=== PATIENT | male | born 1975 | race Caucasian/White ===

== ENCOUNTER 2016-09-27 22:20 | Inpatient (IN) | payer BC, OTHER ==
--- NOTE | 2016-09-27 22:53 | ED ---
Headache HPI - General Chief Complaint: Headache Stated Complaint: Dx Viral Meningitis @ [facility] Time Seen by Provider: 09/27/16 22:32 Source: RN notes reviewed Mode of arrival: ambulatory Limitations: no limitations - History of Present Illness Initial Comments: Patient is a 41-year-old male presents to the emergency room for evaluation of a headache. Patient states he went to [facility] last night around 8 PM with an excruciating headache. Patient states they did a brain CT which was negative, influenza which was negative and a lumbar puncture and he was diagnosed with viral meningitis. Patient states he was sent home with pain medications. Patient states the pain got worse throughout the night last night so he went back to [facility] at 1:30 AM this morning. Patient states that they told them that they do not admit for viral meningitis and sent him home with stronger pain medications. Patient states he still having 10 out of 10 constant headache that would not subside with the medications that are prescribed to him. Patient states he was given Warren, naproxen, Reglan and Zofran. Patient states his last dose of his medications were around 7:30 PM. Patient does admit to sensitivity to light. Patient denies sensitivity to sound. Patient denies ear pain or ringing in the ears. Patient does state he is having neck pain at the base of his neck. Patient denies numbness or tingling in his extremities. Patient states he's been having a low-grade fever. Patient denies any other history of meningitis. - Related Data Home Medications Medication Instructions Recorded Confirmed Aspirin 81 mg PO DAILY 07/24/15 07/24/15 Fenofibrate [Tricor] 160 mg PO DAILY 07/24/15 07/30/15 Loratadine [Claritin] 10 mg PO DAILY 07/24/15 07/30/15 Montelukast Sodium [Singulair] 10 mg PO HS 07/24/15 07/30/15 Multivitamins, Thera [Theragran] 1 each PO DAILY@1200 07/24/15 07/24/15 Omeprazole 40 mg PO DAILY 07/24/15 07/30/15 Sertraline HCl [Zoloft] 50 mg PO HS 07/24/15 07/30/15 valACYclovir [Valtrex] 500 mg PO DAILY 07/24/15 07/30/15 Allergies Allergy/AdvReac Type Severity Reaction Status Date / Time No Known Allergies Allergy Verified 09/27/16 22:27 Review of Systems ROS Statement: Those systems with pertinent positive or pertinent negative responses have been documented in the HPI. ROS Other: All systems not noted in ROS Statement are negative. Past Medical History Past Medical History: Asthma, GERD/Reflux, Hyperlipidemia Additional Past Medical History / Comment(s): "after having stools will have some bleeding and stool discharge after wiping up to an 1 hr after having stools." Hx Herpes History of Any Multi-Drug Resistant Organisms: None Reported Past Surgical History: Orthopedic Surgery Additional Past Surgical History / Comment(s): rt ankle,EGD Past Anesthesia/Blood Transfusion Reactions: No Reported Reaction Past Psychological History: No Psychological Hx Reported Smoking Status: Current some day smoker Past Alcohol Use History: Occasional Additional Past Alcohol Use History / Comment(s): DRINKS ABOUT 14 DRINKS PER WEEK Past Drug Use History: None Reported - Past Family History Mother Family Medical History: Cancer Additional Family Medical History / Comment(s): colorectal ca Father Family Medical History: Cancer Additional Family Medical History / Comment(s): testicular ca General Exam - General Exam Comments Initial Comments: Laying in exam bed, no acute distress. Limitations: no limitations General appearance: alert, in no apparent distress Head exam: Present: atraumatic, normocephalic, normal inspection Eye exam: Present: normal appearance, PERRL, EOMI Pupils: Present: normal accommodation ENT exam: Present: normal exam, normal oropharynx, mucous membranes moist, TM's normal bilaterally, normal external ear exam Neck exam: Present: normal inspection, tenderness (base of skull/cervical spine) , full ROM Respiratory exam: Present: normal lung sounds bilaterally. Absent: respiratory distress Cardiovascular Exam: Present: regular rate, normal rhythm, normal heart sounds Extremities exam: Present: normal inspection Back exam: Present: normal inspection Neurological exam: Present: alert, oriented X3 Expanded Patient oriented to: Present: person, place, time Speech: Present: fluid speech Cranial nerves: EOM's Intact: Normal, Facial Sensation: Normal Sensory exam: Upper Extremity Light Touch: Normal, Lower Extremity Light Touch: Normal Motor strength exam: RUE: 5, LUE: 5, RLE: 5, LLE: 5 Eye Response: (4) open spontaneously Motor Response: (6) obeys commands Verbal Response: (5) oriented Psychiatric exam: Present: normal affect, normal mood Skin exam: Present: warm, dry, intact, normal color. Absent: rash Course Vital Signs 09/27/16 22:25 Temperature 98.5 F Pulse Rate 61 Respiratory 20 Rate Blood Pressure 139/85 O2 Sat by Pulse 100 Oximetry Medical Decision Making - Medical Decision Making Patient is a 41-year-old male presents to the emergency room for evaluation of intractable headache after being diagnosed with viral meningitis. Patient's test results sent from [facility]. Cerebral spinal fluid: Clear, colorless, RBC 14, WBC 63, Protein 94, Glucose 58. Patient states he is feeling much more comfortable after medications given. Case discussed Dr. Castro. Dr. Castro discussed case with Dr. Schaffer who agreed to admit patient for pain control for viral meningitis. - Lab Data Result diagrams: 09/27/16 23:35 09/27/16 23:35 Lab Results 09/27/16 09/27/16 Range/Units 23:35 23:35 WBC 6.6 (3.8-10.6) k/uL RBC 3.96 L (4.30-5.90) m/uL Hgb 12.5 L (13.0-17.5) gm/dL Hct 37.4 L (39.0-53.0) % MCV 94.4 (80.0-100.0) fL MCH 31.6 (25.0-35.0) pg MCHC 33.5 (31.0-37.0) g/dL RDW 13.4 (11.5-15.5) % Plt Count 199 (150-450) k/uL Neutrophils % 78 % Lymphocytes % 13 % Monocytes % 7 % Eosinophils % 0 % Basophils % 0 % Neutrophils # 5.1 (1.3-7.7) k/uL Lymphocytes # 0.8 L (1.0-4.8) k/uL Monocytes # 0.4 (0-1.0) k/uL Eosinophils # 0.0 (0-0.7) k/uL Basophils # 0.0 (0-0.2) k/uL Sodium 142 (137-145) mmol/L Potassium 4.2 (3.5-5.1) mmol/L Chloride 103 (98-107) mmol/L Carbon Dioxide 27 (22-30) mmol/L Anion Gap 12 mmol/L BUN 12 (9-20) mg/dL Creatinine 0.90 (0.66-1.25) mg/dL Est GFR (MDRD) Af Amer >60 (>60 ml/min/1.73 sqM) Est GFR (MDRD) Non-Af >60 (>60 ml/min/1.73 sqM) Glucose 110 H (74-99) mg/dL Calcium 9.4 (8.4-10.2) mg/dL Total Bilirubin 0.7 (0.2-1.3) mg/dL AST 29 (17-59) U/L ALT 56 (21-72) U/L Alkaline Phosphatase 38 (38-126) U/L Total Protein 6.8 (6.3-8.2) g/dL Albumin 4.3 (3.5-5.0) g/dL Disposition Clinical Impression: Viral meningitis, Intractable headache Disposition: ADMITTED IP TO THIS [facility] Condition: Stable Decision Date: 09/28/16
[2016-09-27] MEDS ORDERED: SODIUM CHLORIDE 0.9% 1,000 ML IV ONE (22:56)
[2016-09-27] MEDS ORDERED: KETOROLAC 30 MG/ML 1 ML VIAL IVP STA (22:57)
[2016-09-27] MEDS ORDERED: diphenhydrAMINE 50 MG/ML 1 ML VIAL IVP STA (22:57)
[2016-09-27] MEDS ORDERED: METOCLOPRAMIDE 5 MG/ML 2 ML VIAL IVP STA (22:57)
[2016-09-27] MEDS ORDERED: HYDROmorphone 1 MG/ML 1 ML SYRINGE IVP STA (23:00)
[2016-09-27 23:48] LABS: Basophils % (A) 0 %; CH 31.8; CHCM 33.9; Eosinophils % (A) 0 %; HCT 37.4 % (39.0-53.0); HDW 2.66; HGB 12.5 gm/dL (13.0-17.5); Luc % (Auto) 3; Lymphocytes # (A) 0.8 k/uL (1.0-4.8); Lymphocytes % (A) 13 %; MCH 31.6 pg (25.0-35.0); MCHC 33.5 g/dL (31.0-37.0); MCV 94.4 fL (80.0-100.0); Mean Platelet Volume 6.7; Monocytes # (A) 0.4 k/uL (0-1.0); Monocytes % (A) 7 %; Neutrophils # (A) 5.1 k/uL (1.3-7.7); Neutrophils % (A) 78 %; RBC 3.96 m/uL (4.30-5.90); RDW 13.4 % (11.5-15.5); WBC 6.6 k/uL (3.8-10.6)
[2016-09-27 23:58] LABS: ALT 56 U/L (21-72); AST 29 U/L (17-59); Alkaline Phosphatase 38 U/L (38-126); Anion Gap 12 mmol/L; Blood Urea Nitrogen 12 mg/dL (9-20); Calcium 9.4 mg/dL (8.4-10.2); Carbon Dioxide 27 mmol/L (22-30); Chloride 103 mmol/L (98-107); Glucose 110 mg/dL (74-99); Non-African American GFR(MDRD) >60 (>60 ml/min/1.73 sqM); Potassium 4.2 mmol/L (3.5-5.1); Sodium 142 mmol/L (137-145); Total Bilirubin 0.7 mg/dL (0.2-1.3); Total Protein 6.8 g/dL (6.3-8.2)
[2016-09-28] MEDS ORDERED: ONDANSETRON 4 MG/2 ML VIAL IVP PRN (00:21)
[2016-09-28] MEDS ORDERED: NALOXONE 0.4 MG/ML 1 ML VIAL IV PRN (00:21)
[2016-09-28] MEDS ORDERED: ACETAMINOPHEN TAB 325 MG TAB PO PRN (00:21)
[2016-09-28 01:28] VITALS: BMI 32.1
[2016-09-28] MEDS: HYDROmorphone 1 MG/ML 1 ML SYRINGE IV PRN ×2 (02:54→07:48)
[2016-09-28] MEDS: SODIUM CHLORIDE 0.9% 1,000 ML IV SCH ×2 (03:02→12:36)
[2016-09-28] MEDS: KETOROLAC 30 MG/ML 1 ML VIAL IVP PRN ×3 (06:17→20:04)
--- NOTE | 2016-09-28 11:13 | HP ---
HISTORY AND PHYSICAL/DISCHARGE SUMMARY: DATE OF ADMISSION: This dictation is both H&P and discharge summary. Patient is a 41-year-old gentleman who came in, is admitted for severe headache and patient was recently diagnosed with viral meningitis at the [facility]. Patient presented to [facility] on Wednesday with headache, influenza testing was negative and patient had a CT of brain that as negative and patient underwent CSF analysis which is consistent with vital meningitis. Patient was discharged on naproxen. Patient is already on valacyclovir and patient was given Reglan. Patient's symptoms did get worse and uncontrollable headache, because of which patient came to the hospital and patient's pain he says is controlled with Toradol as well as Dilaudid he is taking. My plan is to switch him to oral medications and if he is doing okay clinically, patient will be discharged today. Patient at this time does not have any fevers and denied any body aches at this point of time. REVIEW OF SYSTEMS: CONSTITUTIONAL: No fever, no malaise, no fatigue. HEENT: No recent visual problems or hearing problems. Denied any sore throat. CARDIOVASCULAR: No chest pain, orthopnea, PND, no palpitations, no syncope. PULMONARY: No shortness of breath, no cough, no hemoptysis. GASTROINTESTINAL: No diarrhea, no nausea, no vomiting, no abdominal pain. Normoactive bowel sounds. NEUROLOGICAL: As described in HPI. HEMATOLOGICAL: Denies any bleeding or petechiae. GENITOURINARY: Denies any burning micturition, frequency, or urgency. MUSCULOSKELETAL/RHEUMATOLOGICAL: Denies any joint pain, swelling, or any muscle pain. ENDOCRINE: Denies any polyuria or polydipsia. The rest of the 14 point review of systems is negative. Patient does not have any weakness, seizure-like activity. Denied any seizure-like activity. Patient denied any history of migraine. Home medications include: 1. Fenofibrate. 2. Loratadine. 3. Montelukast. 4. Multivitamin. 5. Omeprazole. 6. Sertraline. 7. Valacyclovir. ALLERGIES: No known drug allergies. Past medical history significant for asthma, gastroesophageal reflux disease, hyperlipidemia. PAST SURGICAL HISTORY: Orthopedic surgery, right ankle surgery in the past. Patient does smoke a pack per day, drinks about 14 beers for a week. Denied any drug abuse. FAMILY HISTORY: Mother had colorectal cancer. Father had testicular cancer. PHYSICAL EXAMINATION: Temperature 98.1, pulse of 60, respiratory rate of 16, blood pressure is 141/87, saturating at 97% on room air. GENERAL: Patient is in a bit of distress and appears to have a little bit of continued photophobia. Because of which patient has cloth over his eyes. Alert and oriented x3. HEENT: Pupils are round and equally reacting to light. EOMI. No scleral icterus. No conjunctival pallor. Normocephalic, atraumatic. No pharyngeal erythema. No thyromegaly. CARDIOVASCULAR: S1 and S2 present. No murmurs, rubs, or gallops. PULMONARY: Chest is clear to auscultation, no wheezing or crackles. ABDOMEN: Soft, nontender, nondistended, normoactive bowel sounds. No palpable organomegaly. MUSCULOSKELETAL: No joint swelling or deformity. EXTREMITIES: No cyanosis, clubbing, or pedal edema. NEUROLOGICAL: Gross neurological examination did not reveal any focal deficits. SKIN: No rashes. LABORATORY DATA: CBC, CMP, essentially within normal limits. ASSESSMENT AND PLAN: 1. Uncontrolled severe headache, management as mentioned in the interval history. Secondary to viral meningitis. Expected to improve in the next couple of days. Patient probably should stay home for the next 4 days. 2. Asthma without any acute exacerbation. 3. Nicotine abuse history, counseling was provided. 4. Gastroesophageal reflux disease. 5. Hyperlipidemia. For above-mentioned chronic medical problems, will continue his home medications. Patient will be started on Fioricet, continue Ketoralac, discontinue Dilaudid. If patient is clinically doing well, patient will be discharged on Fioricet and Ketorolac and discontinue naproxen as well as Zofran. Patient will follow with his primary care physician. DISCHARGE DIET: Regular. Nicotine cessation counseling was provided.
[2016-09-28] MEDS: BUTA/APAP/CAF/COD 50-325-40-30 CAP PO PRN ×2 (11:26→17:12)
[2016-09-28] MEDS: HYDROcodone/APAP 7.5-325MG 1 EACH TAB PO PRN (14:57)
[2016-09-28] MEDS ORDERED: MONTELUKAST 10 MG TAB PO SCH (21:00)
[2016-09-28] MEDS ORDERED: SERTRALINE 50 MG TAB PO SCH (21:00)
[2016-09-29] MEDS: BUTA/APAP/CAF/COD 50-325-40-30 CAP PO PRN
[2016-09-29] MEDS: HYDROcodone/APAP 7.5-325MG 1 EACH TAB PO PRN ×2 (00:02→07:59)
[2016-09-29] MEDS: SODIUM CHLORIDE 0.9% 1,000 ML IV SCH ×2 (01:15→08:25)
[2016-09-29] MEDS ORDERED: PANTOPRAZOLE 40 MG TABLET PO SCH (07:30)
[2016-09-29 08:16] VITALS: BP 155/89; PULSE 52; RESP 18; TEMP 98
[2016-09-29] MEDS ORDERED: valACYclovir 500 MG TAB PO SCH (09:00)
[2016-09-29] MEDS ORDERED: ASPIRIN 81 MG CHEW PO SCH (09:00)
[2016-09-29] MEDS ORDERED: FENOFIBRATE 160 MG TAB PO SCH (09:00)
--- NOTE | 2016-09-29 10:35 | DS ---
DATE OF ADMISSION: 09/28/2016 DATE OF DISCHARGE: Patient is a 41-year-old admitted with severe headache secondary to viral meningitis and patient's headache did improve. Patient will be discharged today on oral medications. Will try and see if Pain Management can see the patient. If not, patient will be discharged later on etodolac and Fioricet. Patient was seen and examined on the day of discharge. Vitals are stable. PHYSICAL EXAMINATION: GENERAL: The patient is alert and oriented x3, not in any acute distress. Well developed, well nourished. HEENT: Pupils are round and equally reacting to light. EOMI. No scleral icterus. No conjunctival pallor. Normocephalic, atraumatic. No pharyngeal erythema. No thyromegaly. CARDIOVASCULAR: S1 and S2 present. No murmurs, rubs, or gallops. PULMONARY: Chest is clear to auscultation, no wheezing or crackles. ABDOMEN: Soft, nontender, nondistended, normoactive bowel sounds. No palpable organomegaly. MUSCULOSKELETAL: No joint swelling or deformity. EXTREMITIES: No cyanosis, clubbing, or pedal edema. NEUROLOGICAL: Gross neurological examination did not reveal any focal deficits. SKIN: No rashes. FINAL DIAGNOSES: 1. Uncontrolled severe headache secondary to viral meningitis. Patient had herpes simplex years ago. Since then, patient is on Valtrex. Patient's viral meningitis is not related to herpes simplex. 2. Asthma without any acute exacerbation. 3. Nicotine abuse. 4. Gastroesophageal reflux disease. 5. Hyperlipidemia. DISCHARGE DIET: Cardiac. Activity as tolerated. Follow up with Dr. Gordon Interiano in about 3 to 7 days.
[2016-09-29] MEDS: KETOROLAC 30 MG/ML 1 ML VIAL IVP PRN (10:37)
[2016-09-29] MEDS ORDERED: oxyCODONE-APAP 7.5-325MG 1 EACH TAB PO STA (11:47)
[2016-09-29] MEDS ORDERED: oxyCODONE-APAP 7.5-325MG 1 EACH TAB PO PRN (11:48)
--- NOTE | 2016-09-29 11:48 | P.CON ---
Consult Note - . Consult date: 09/29/16 Assessment/Plan:: Patient seen and examined, past medical/surgical/social/family histories and allergies reviewed. Mr. Scruggs is a 41-year-old male who presented to [facility] with headaches and a previous diagnosis of viral meningitis that he got at [facility]; patient notes that they do not treat viral meningitis at that facility and discharged him with pain medications for his headaches after two visits to the ER. Patient complains of splitting headaches that are frontal and retro-orbital. He has had occasional migraines before but nothing this bad. Patient had CT scans, lumbar punctures, and blood work done at other facility demonstrating viral meningitis per chart. Patient has been taking Valtrex chronically for HSV but it is not believed that his meningitis is due to HSV. At this point, I do not see any indications for injections given that his pain does not follow distribution of any peripheral nerves, whether occipital, supraorbital, or auriculotemporal. Regardless, it would be unwise to perform any injections for the patient's headaches at this time due to his presumed meningitis, as any and all procedures would involve giving him steroids that might worsen it. I recommend that the patient be discharged with Percocet 7.5/ 325 q8h with a total of #45 pills for 15 days' supply, anticipating that his headaches should improve along with the meningitis. I informed the patient that , if his headaches do not improve and he needs further management, he should follow up with a neurologist for further evaluation. Follow-up in our interventional pain clinic is unlikely to give him any further benefit. He verbalized understanding. Please call back with any further questions.
== END 2016-09-29 13:10 | disposition home or self-care (01) | DRG 76 ==
LOC: EC 22:20 → 5MS5E 09-28 00:23
PROVIDERS: ADMIT Internal Medicine; ATTEND Internal Medicine
DX: A87.9 Viral meningitis, unspecified (principal); E78.5 Hyperlipidemia, unspecified; F17.200 Nicotine dependence, unspecified, uncomplicated; J45.909 Unspecified asthma, uncomplicated; K21.9 Gastro-esophageal reflux disease without esophagitis; R51 Headache; Z79.82 Long term (current) use of aspirin; Z79.899 Other long term (current) drug therapy
CPT/HCPCS: 36415; 80053; 85025; 96361; 96374; 96375; 99285

== ENCOUNTER 2018-10-30 17:41 | Inpatient (IN) | payer BC ==
--- NOTE | 2018-10-30 17:56 | ED ---
General Adult HPI - General Chief complaint: Fever Stated complaint: Fever, infection Time Seen by Provider: 10/30/18 17:48 Source: patient Mode of arrival: wheelchair Limitations: no limitations - History of Present Illness Initial comments: Dictation was produced using [employer] dictation software. please excuse any grammatical, word or spelling errors. Chief Complaint: 43-year-old male presents with left knee pain and fever. History of Present Illness: 43-year-old maleappearing comorbidities presents with left knee pain and fever. Patient reports that she today he noted that there was significant pain to his left anterior knee. Patient states he's been okay over the last couple days however he noted swelling and redness around his knee today. Patient states his having pain and throbbing sensation to his left anterior knee. Patient still able to bend and extend his knee. Denies any swelling to the sides just swelling to the anterior portion. Patient recently had a vasectomy. He states he was put on antibiotics as a precautionary measure. He does report some pain to his testicular area. The ROS documented in this emergency department record has been reviewed and confirmed by me. Those systems with pertinent positive or negative responses have been documented in the HPI. All other systems are other negative and/or noncontributory. PHYSICAL EXAM: General Impression: Alert and oriented x3, not in acute distress HEENT: Normocephalic atraumatic, extra-ocular movements intact, pupils equal and reactive to light bilaterally, mucous membranes moist. Cardiovascular: Heart regular rate and rhythm, S1&S2 audible, no murmurs, rubs or gallops Chest: Lungs clear to auscultation bilaterally, no rhonchi, no wheeze, no rales Abdomen: Bowel sounds present, abdomen soft, non-tender, non-distended, no organomegaly Musculoskeletal: Pulses present and equal in all extremities, no peripheral edema Motor: no focal deficits noted Neurological: CN II-XII grossly intact, no focal motor or sensory deficits noted Skin: Fluctuant area to the left anterior prepatellar bursa, warm to the touch Psych: Normal affect and mood ED course: 43-year-old male presents with knee pain and constitutional symptoms. Vital signs upon arrival shows temperature 101.1, rest of vital signs within acceptable limits. Prepatellar bursa was drained using a needle aspiration technique. There was purulent fluid that was draining from the inflamed bursa.Laboratory evaluation obtained. Leukocytosis 13.9. Rest of CBC is grossly unremarkable. Metabolic panel is negative. Urinalysis is negative. Bursal fluid were sent for laboratory evaluation. There is 204,000 no nucleated cells. This is consistent with septic bursitis. Influenza test is negative. Patient given vancomycin. Patient still nauseated. Patient clinical presentation consistent with septic bursitis. Patient does have constitutional symptoms. Blood culture sent. Given patient's degree of symptoms we will plan at patient admitted to medical surgical floor. Hospitalist requests infection disease consultation. - Related Data Home Medications Medication Instructions Recorded Confirmed Aspirin 81 mg PO DAILY 07/24/15 10/30/18 Fenofibrate [Tricor] 160 mg PO DAILY 07/24/15 10/30/18 Montelukast Sodium [Singulair] 10 mg PO HS 07/24/15 10/30/18 Multivitamins, Thera [Theragran] 1 tab PO DAILY 07/24/15 10/30/18 Omeprazole 40 mg PO DAILY 07/24/15 10/30/18 Sertraline HCl [Zoloft] 50 mg PO HS 07/24/15 10/30/18 valACYclovir [Valtrex] 500 mg PO DAILY 07/24/15 10/30/18 Allergies Allergy/AdvReac Type Severity Reaction Status Date / Time No Known Allergies Allergy Verified 10/30/18 18:26 Review of Systems ROS Statement: Those systems with pertinent positive or pertinent negative responses have been documented in the HPI. ROS Other: All systems not noted in ROS Statement are negative. Past Medical History Past Medical History: Asthma, GERD/Reflux, Hyperlipidemia Additional Past Medical History / Comment(s): "after having stools will have some bleeding and stool discharge after wiping up to an 1 hr after having stools." Hx Herpes History of Any Multi-Drug Resistant Organisms: None Reported Past Surgical History: Orthopedic Surgery Additional Past Surgical History / Comment(s): rt ankle,EGD, L eye surgery, vasectomy Past Anesthesia/Blood Transfusion Reactions: No Reported Reaction Past Psychological History: No Psychological Hx Reported Smoking Status: Light tobacco smoker Past Alcohol Use History: Occasional Past Drug Use History: None Reported - Past Family History Mother Family Medical History: Cancer Additional Family Medical History / Comment(s): colorectal ca Father Family Medical History: Cancer Additional Family Medical History / Comment(s): testicular ca General Exam Limitations: no limitations Course Vital Signs 10/30/18 10/30/18 10/30/18 17:44 17:51 19:00 Temperature 100.5 F H 101.1 F H Pulse Rate 100 Respiratory 18 18 Rate Blood Pressure 137/82 125/72 O2 Sat by Pulse 97 98 Oximetry Medical Decision Making - Lab Data Result diagrams: 10/30/18 18:25 10/30/18 18:25 Lab Results 10/30/18 10/30/18 10/30/18 Range/Units 18:25 18:25 18:39 WBC 13.9 H (3.8-10.6) k/uL RBC 4.42 (4.30-5.90) m/uL Hgb 13.6 (13.0-17.5) gm/dL Hct 39.8 (39.0-53.0) % MCV 90.1 (80.0-100.0) fL MCH 30.8 (25.0-35.0) pg MCHC 34.2 (31.0-37.0) g/dL RDW 16.0 H (11.5-15.5) % Plt Count 202 (150-450) k/uL Neutrophils % 84 % Lymphocytes % 8 % Monocytes % 6 % Eosinophils % 1 % Basophils % 0 % Neutrophils # 11.6 H (1.3-7.7) k/uL Lymphocytes # 1.2 (1.0-4.8) k/uL Monocytes # 0.8 (0-1.0) k/uL Eosinophils # 0.2 (0-0.7) k/uL Basophils # 0.0 (0-0.2) k/uL Sodium 141 (137-145) mmol/L Potassium 4.3 (3.5-5.1) mmol/L Chloride 108 H (98-107) mmol/L Carbon Dioxide 23 (22-30) mmol/L Anion Gap 10 mmol/L BUN 19 (9-20) mg/dL Creatinine 1.14 (0.66-1.25) mg/dL Est GFR (CKD-EPI)AfAm 90 (>60 ml/min/1.73 sqM) Est GFR (CKD-EPI)NonAf 78 (>60 ml/min/1.73 sqM) Glucose 91 (74-99) mg/dL Calcium 10.1 (8.4-10.2) mg/dL Urine Color Yellow Urine Appearance Cloudy (Clear) Urine pH 7.5 (5.0-8.0) Ur Specific [place] 1.020 (1.001-1.035) Urine Protein Negative (Negative) Urine Glucose (UA) Negative (Negative) Urine Ketones Negative (Negative) Urine Blood Negative (Negative) Urine Nitrite Negative (Negative) Urine Bilirubin Negative (Negative) Urine Urobilinogen <2.0 (<2.0) mg/dL Ur Leukocyte Esterase Negative (Negative) Urine WBC 1 (0-5) /hpf Amorphous Sediment Rare H (None) /hpf Fluid Source Fluid Color Fluid Appearance Fluid RBC /uL Fluid Nucleated Cells /uL Fluid Polynuclear WBCs % Influenza Type A RNA (Not Detectd) Influenza Type B (PCR) (Not Detectd) 10/30/18 10/30/18 Range/Units 18:39 18:42 WBC (3.8-10.6) k/uL RBC (4.30-5.90) m/uL Hgb (13.0-17.5) gm/dL Hct (39.0-53.0) % MCV (80.0-100.0) fL MCH (25.0-35.0) pg MCHC (31.0-37.0) g/dL RDW (11.5-15.5) % Plt Count (150-450) k/uL Neutrophils % % Lymphocytes % % Monocytes % % Eosinophils % % Basophils % % Neutrophils # (1.3-7.7) k/uL Lymphocytes # (1.0-4.8) k/uL Monocytes # (0-1.0) k/uL Eosinophils # (0-0.7) k/uL Basophils # (0-0.2) k/uL Sodium (137-145) mmol/L Potassium (3.5-5.1) mmol/L Chloride (98-107) mmol/L Carbon Dioxide (22-30) mmol/L Anion Gap mmol/L BUN (9-20) mg/dL Creatinine (0.66-1.25) mg/dL Est GFR (CKD-EPI)AfAm (>60 ml/min/1.73 sqM) Est GFR (CKD-EPI)NonAf (>60 ml/min/1.73 sqM) Glucose (74-99) mg/dL Calcium (8.4-10.2) mg/dL Urine Color Urine Appearance (Clear) Urine pH (5.0-8.0) Ur Specific [place] (1.001-1.035) Urine Protein (Negative) Urine Glucose (UA) (Negative) Urine Ketones (Negative) Urine Blood (Negative) Urine Nitrite (Negative) Urine Bilirubin (Negative) Urine Urobilinogen (<2.0) mg/dL Ur Leukocyte Esterase (Negative) Urine WBC (0-5) /hpf Amorphous Sediment (None) /hpf Fluid Source Synovial Fluid Color [place] Fluid Appearance Cloudy Fluid RBC 9000 /uL Fluid Nucleated Cells 888153 /uL Fluid Polynuclear WBCs 100 % Influenza Type A RNA Not Detected (Not Detectd) Influenza Type B (PCR) Not Detected (Not Detectd) Disposition Clinical Impression: Septic bursitis Disposition: ADMITTED IP TO THIS [facility] Condition: Fair Referrals: Colten Romero MD [Primary Care Provider] - 1-2 days Decision Time: 20:26
[2018-10-30] MEDS ORDERED: VANCOMYCIN 2,000 MG in SODIUM CHLORIDE 0.9% 500 ML 500 ML IVPB STA (18:20)
[2018-10-30 18:37] LABS: Basophils % (A) 0 %; Eosinophils # (A) 0.2 k/uL (0-0.7); Eosinophils % (A) 1 %; HCT 39.8 % (39.0-53.0); HGB 13.6 gm/dL (13.0-17.5); Lymphocytes # (A) 1.2 k/uL (1.0-4.8); Lymphocytes % (A) 8 %; MCH 30.8 pg (25.0-35.0); MCHC 34.2 g/dL (31.0-37.0); MCV 90.1 fL (80.0-100.0); Mean Platelet Volume 9.3; Monocytes # (A) 0.8 k/uL (0-1.0); Monocytes % (A) 6 %; Neutrophils # (A) 11.6 k/uL (1.3-7.7); Neutrophils % (A) 84 %; Platelet Count 202 k/uL (150-450); RBC 4.42 m/uL (4.30-5.90); WBC 13.9 k/uL (3.8-10.6)
[2018-10-30 18:54] LABS: Calcium 10.1 mg/dL (8.4-10.2); Potassium 4.3 mmol/L (3.5-5.1)
[2018-10-30 19:18] LABS: Amorphous Sediment,Urine Rare /hpf; Appearance,Urine Cloudy (Clear); Bilirubin,Urine Negative (Negative); Blood,Urine Negative (Negative); Color,Urine Yellow; Glucose,Urine (UA) Negative (Negative); Ketones,Urine Negative (Negative); Leukocyte Esterase,Urine Negative (Negative); Nitrite,Urine Negative (Negative); PH, Urine 7.5 (5.0-8.0); Protein,Urine Negative (Negative); Urobilinogen,Urine <2.0 mg/dL (<2.0)
[2018-10-30 19:28] LABS: Appearance,BF Cloudy; Color,BF Orange; RBC, Body Fluid 9000 /uL
[2018-10-30 19:29] LABS: Nucleated Cells, Body Fluid 204000 /uL; Polynuclear WBC,Body Fluid 100 %; Total Cells Counted,Body Fluid 100
[2018-10-30] MEDS ORDERED: NALOXONE 0.4 MG/ML 1 ML VIAL IV PRN (20:22)
[2018-10-30] MEDS ORDERED: MORPHINE SULFATE 4 MG/ML SYRINGE IV PRN (20:22)
[2018-10-30] MEDS ORDERED: ONDANSETRON 4 MG/2 ML VIAL IVP PRN (20:22)
[2018-10-30] MEDS ORDERED: SODIUM CHLORIDE 0.9% 1,000 ML IV SCH (20:30)
[2018-10-30] MEDS: ACETAMINOPHEN TAB 325 MG TAB PO PRN (20:53)
[2018-10-30] MEDS ORDERED: IBUPROFEN 400 MG TAB PO PRN (22:53)
[2018-10-30] MEDS ORDERED: LORazepam 2 MG/ML INJ IV PRN ×3 (22:54)
[2018-10-30] MEDS: MONTELUKAST 10 MG TAB PO SCH (23:24)
[2018-10-30] MEDS: FAMOTIDINE 20 MG TAB PO SCH (23:24)
[2018-10-30] MEDS: SERTRALINE 50 MG TAB PO SCH (23:24)
[2018-10-31 06:32] LABS: Glucose,Whole Blood 114 mg/dL (75-99)
[2018-10-31] MEDS: ASPIRIN 81 MG PO SCH (09:05)
[2018-10-31] MEDS: ACETAMINOPHEN TAB 325 MG TAB PO PRN ×2 (09:06→16:27)
[2018-10-31] MEDS: THIAMINE 100 MG TAB PO SCH ×2 (09:06→16:28)
[2018-10-31] MEDS: MULTIVITAMINS, THERA 1 EACH TAB PO SCH (09:06)
[2018-10-31] MEDS: FENOFIBRATE 160 MG TAB PO SCH (09:06)
[2018-10-31] MEDS: FAMOTIDINE 20 MG TAB PO SCH ×2 (09:06→21:01)
[2018-10-31] MEDS: valACYclovir 500 MG TAB PO SCH (09:08)
[2018-10-31] MEDS ORDERED: VANCOMYCIN IV PER PHARMACY 1 EACH MISC MISCELLANE PRN (11:05)
[2018-10-31] MEDS ORDERED: HYDROcodone/APAP 5-325MG 1 EACH TAB PO PRN (11:05)
[2018-10-31] MEDS ORDERED: HYDROmorphone 0.5 MG/0.5 ML SYRINGE IVP PRN (11:10)
[2018-10-31] MEDS ORDERED: TEMAZEPAM 15 MG CAP PO PRN (11:27)
[2018-10-31] MEDS ORDERED: ALPRAZolam 0.25 MG TAB PO PRN (11:27)
[2018-10-31] MEDS: VANCOMYCIN 1,750 MG in SODIUM CHLORIDE 0.9% 500 ML 500 ML IVPB SCH ×2 (12:17→21:01)
[2018-10-31] MEDS: SODIUM CHLORIDE 0.9% 1,000 ML IV SCH (12:18)
[2018-10-31 12:40] LABS: Uric Acid 5.5 mg/dL (3.5-8.5)
[2018-10-31] MEDS: KETOROLAC 30 MG/ML 1 ML VIAL IVP SCH ×2 (16:55→23:50)
--- NOTE | 2018-10-31 17:22 | P.CNOR ---
History of Present Illness - [facility] Consult date: 10/31/18 History of present illness: This patient is a 43 year old male with a past medical history of dyslipidemia who presented to the [facility] ED yesterday afternoon for evaluation of his left knee. The patient states he began to notice pain in the left knee yesterday morning. He then began to notice swelling and erythema of the anterior left knee later on in the day. The patient states he began to lose his appetite, felt nauseated, and very warm around dinner time, patient lost his appetite to eat dinner. Patient presented to the ED last night for evaluation and treatment. Patient was febrile on arrival, temperature was 101 degrees. CBC revealed WBC of 13.1. Aspiration was performed of the prepatellar bursa and fluid analysis revealed 204,000 nucleated cells, 100 polynuclear WBCs, culture is pending. The patient is receiving Vancomycin for antibiotics. Patient was admitted to internal medicine with consults placed to infectious disease and orthopedics. At the time of my exam, the patient states his pain in the left knee is contr olled. He states he only experiences pain when the anterior left knee is palpated, or when he is ambulating. The patient states he overall feels better than he did yesterday when he presented to the ED; he is no longer experiencing nausea or additional constitutional symptoms. Patient notes a recent history of a vasectomy, when he states he experienced a mild post-operative infection in this area, and he was given two prescriptions for post-operative antibiotics, he is unsure which antibiotic. Patient states he is no longer experiencing issues from this episode. He has since followed up with his doctor, who is located in [place], per patient. He denies history of septic arthritis or bursitis. Patient denies injury to this knee. Patient denies pain in additional areas of the body. Past Medical History Past Medical History: Asthma, GERD/Reflux, Hyperlipidemia Additional Past Medical History / Comment(s): Hx Herpes History of Any Multi-Drug Resistant Organisms: None Reported Past Surgical History: Orthopedic Surgery Additional Past Surgical History / Comment(s): rt ankle,EGD, L eye surgery, vasectomy Past Anesthesia/Blood Transfusion Reactions: No Reported Reaction Past Psychological History: No Psychological Hx Reported Smoking Status: Never smoker Past Alcohol Use History: Occasional Additional Past Alcohol Use History / Comment(s): 5 beers/ night. Has an occasional cigar Past Drug Use History: None Reported - Past Family History Mother Family Medical History: Cancer Additional Family Medical History / Comment(s): colorectal ca Father Family Medical History: Cancer Additional Family Medical History / Comment(s): testicular ca Medications and Allergies Home Medications Medication Instructions Recorded Confirmed Type Aspirin 81 mg PO DAILY 07/24/15 10/30/18 History Fenofibrate [Tricor] 160 mg PO DAILY 07/24/15 10/30/18 History Montelukast Sodium [Singulair] 10 mg PO HS 07/24/15 10/30/18 History Multivitamins, Thera [Theragran] 1 tab PO DAILY 07/24/15 10/30/18 History Omeprazole 40 mg PO DAILY 07/24/15 10/30/18 History Sertraline HCl [Zoloft] 50 mg PO HS 07/24/15 10/30/18 History valACYclovir [Valtrex] 500 mg PO DAILY 07/24/15 10/30/18 History Allergies Allergy/AdvReac Type Severity Reaction Status Date / Time No Known Allergies Allergy Verified 10/30/18 18:26 Physical Examination On examination, the patient is sitting in bed in no apparent distress. The patient is alert and orientated x3. He appears comfortable. On inspection of the left knee, there is swelling and erythema to the anterior knee. There are no open wounds or lacerations. The anterior knee is diffusely tender to palpation, this area is also warm. No tenderness on palpation of the patellar or quadriceps tendon, no tenderness of the popliteal fossa. There is mild pain with PROM of the knee. The left lower extremity is warm and well perfused with brisk capillary refill of the toes. No pain with PROM of the left ankle or hip. Left calf is soft and nontender. Vital signs stable. Results Pre-patellar bursa aspiration: 204,000 nucleated cells. 100 polynuclear WBCs. Cultures pending. WBC 13.1, CRP 142. ESR 8. - Labs Labs: Abnormal Lab Results - Last 24 Hours (Table) 10/30/18 10/30/18 10/30/18 Range/Units 18:25 18:25 18:39 WBC 13.9 H (3.8-10.6) k/uL RDW 16.0 H (11.5-15.5) % Neutrophils # 11.6 H (1.3-7.7) k/uL Chloride 108 H (98-107) mmol/L POC Glucose (mg/dL) (75-99) mg/dL Amorphous Sediment Rare H (None) /hpf 10/31/18 Range/Units 06:30 WBC (3.8-10.6) k/uL RDW (11.5-15.5) % Neutrophils # (1.3-7.7) k/uL Chloride (98-107) mmol/L POC Glucose (mg/dL) 114 H (75-99) mg/dL Amorphous Sediment (None) /hpf Microbiology - Last 24 Hours (Table) 10/30/18 18:39 Gram Stain - Preliminary Knee - Left Wound Culture - Preliminary H & H 10/30/18 Range/Units 18:25 Hgb 13.6 (13.0-17.5) gm/dL Hct 39.8 (39.0-53.0) % Result Diagrams: 10/30/18 18:25 10/30/18 18:25 Assessment and Plan Assessment: Septic bursitis left knee Plan: - Recommend warm compresses to the left knee. MENDEL wrap placed to provide compression to knee. - IV antibiotics per infectious disease. Cultures pending. - We will continue to monitor patient's response to IV antibiotics and supportive care. If he fails to improve, we will plan on surgical intervention tomorrow with Dr. Montes De Oca. NPO diet after midnight tonight. - We continue to monitor patient and make recommendations accordingly. Patient discussed with Dr. Montes De Oca.
[2018-10-31] MEDS: HEPARIN SODIUM,PORCINE 5,000 UNIT/ML 1 ML VIAL SQ SCH (21:01)
[2018-10-31] MEDS: MONTELUKAST 10 MG TAB PO SCH (21:01)
[2018-10-31] MEDS: SERTRALINE 50 MG TAB PO SCH (21:01)
--- NOTE | 2018-10-31 21:01 | HP ---
HISTORY AND PHYSICAL DATE OF SERVICE: 10/31/2018 CHIEF COMPLAINTS: Pain and swelling of the left ankle. HISTORY OF PRESENT ILLNESS: This 43-year-old gentleman with a past medical history of multiple medical problems including asthma, GERD, hyperlipidemia, herpes, being followed by Dr. Colten Romero in the outpatient setting noted to have pain and swelling of the left knee. The patient apparently had a long also after that. The left knee was painful and the patient came to [facility] and admitted for further evaluation and treatment. After admission the patient underwent . The patient also had recent vasectomy and some postop infections treated with antibiotics, but currently healed according to him. The aspiration of the prepatellar bursa was performed and the fluid showed evidence of infection with neutrophils 204,000, nucleated cells. The patient admitted for further evaluation and treatment. CRP elevated 142. Uric acid is only 5.5. ESR is 8. Patient admitted to the hospital for further evaluation and treatment. No history of headache, loss of consciousness, seizures. The patient was not feeling well yesterday before coming to the hospital, with rigors, chills as well as nausea. PAST MEDICAL HISTORY: History of asthma, GERD, hypertension, hyperlipidemia, history of herpes. MEDICATIONS: Prior to admission include home medications are: 1. Valtrex 500 mg p.o. daily. 2. Zoloft 50 mg q.h.s. 3. Omeprazole 40 mg p.o. daily. 4. Multivitamins one p.o. daily. 5. Singular 10 mg q.h.s. 6. Tricor 160 mg daily. 7. Aspirin 81 mg. ALLERGIES: None. FAMILY HISTORY: History of colon cancer in the family. SOCIAL HISTORY: Occasional alcohol. No history of smoking. Patient is a principal technical specialist. History of 2-3 drinks per day. REVIEW OF SYSTEMS: ENT: No diminished hearing or vision. CARDIOVASCULAR: No angina. No palpitations. RESPIRATORY: No cough. No hemoptysis. GI no nausea or vomiting. no dysuria. CENTRAL NERVOUS SYSTEM: No numbness, weakness. ALLERGY/IMMUNOLOGY: No asthma or hayfever. MUSCULOSKELETAL: As mentioned earlier. HEMATOLOGY/ONCOLOGY: No history of anemia. ENDOCRINE: No history of diabetes or hypothyroidism. CONSTITUTIONAL: As mentioned earlier. Dermatology: Negative. Rheumatology: Negative. Psychiatry: As mentioned earlier. PHYSICAL EXAMINATION: Alert and oriented times three. Pulse 73, blood pressure 130/70, respiration 16, temperature 99.2, pulse ox 98% on room air. T-Max 100.3. HEENT: Conjunctivae normal. Oral mucosa moist. NECK is no jugular venous distention. No carotid bruit. No lymph node enlargement. CARDIOVASCULAR: S1, S2 muffled. RESPIRATIONS: Breath sounds diminished in the bases. No rhonchi. No crackles. ABDOMEN: Soft, nontender. No mass palpable. Legs no edema. No swelling. NERVOUS SYSTEM: Higher functions as mentioned earlier. Moves all 4 limbs. No focal deficits. Lymphatics: No lymph nodes palpable in the neck, axillae or groin. Skin: No ulcer. No rash. No bleeding. JOINTS: No active arthropathy. Exam of the left knee is painful, swollen and red. LAB INVESTIGATIONS: WBC 13.2, hemoglobin 13.6. CRP noted. ASSESSMENT: 1. Left knee prepatellar bursitis with possible acute sepsis present on admission status post aspiration. 2. Increased CRP. 3. Increased WBC. 4. History of asthma. 5. History of gastroesophageal reflux disease. 6. Hyperlipidemia. 7. History of degenerative joint disease. 8. History of recent vasectomy. 9. History of herpes. RECOMMENDATIONS AND DISCUSSION: In this 43-year-old gentleman who presented with multiple complex medical issues, at this time, I recommend to continue current medications, symptomatic treatment, continue monitoring. We will initiate broad-spectrum IV antibiotics. Obtain the cultures. Infectious Disease and Orthopedic evaluations. Guarded prognosis because of multiple complex medical issues. Further recommendations to follow. A copy of dictation being forwarded to Dr. Colten Romero who is the primary care physician. MMMIGUELL / ROMEON: [id number] / MTDD
--- NOTE | 2018-10-31 22:14 | P.CONS ---
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 Patient relates that he is a relatively active person and had some routine activities going on on Wednesday. On Wednesday the weather was very nice and he was able to golf about 4 holes of golf. At some work around the yard and was able to get some yard furniture out. He enjoyed some sports on TV. He then had a sudden and rapid onset of pain into his left knee. He rested for a bit and then followed difficulty could not even walk because was feeling so painful and calcium presented to the emergency center. Some fluid was aspirated that showed evidence of a significant amount of white blood cells in it and he was admitted and consults were initiated. The patient has been seen by orthopedics for potential incision and drainage. Review of Systems Pleasant 43-year-old male no acute difficulties with his knee, did have fever and chill HEENT:Denies headache or acute visual change. Denies sinus or mouth discomforts. Denies neck stiffness or pain. Denies significant oral cavity pain. Denies difficulty on swallowing. Lungs: Denies significant shortness of breath, cough, sputum production, or hemoptysis. Cardiovascular: Denies significant shortness of breath, chest pain, chest wall pain, orthopnea, dyspnea on exertion, syncope Gastrointestinal:Denies nausea, vomiting, diarrhea, constipation, hematemesis, melena, hematochezia. No no significant change of bowel habit noticed. Musculoskeletal: Has had some prior trauma to the lower extremities but nothing new to the left knee. Had no new injury, was not kneeling was not doing any activity such as installing jensen or kneeling in the yard. He had no recent falls or trauma to the knee that he can recall. Skin: Sudden onset of redness and swelling to the left knee Neuro: Denies headache or visual change. Denies any new onset weakness or difficulty with ambulation. Denies falls or seizures. Psychiatric:Denies anxiety or depression. Endocrine: Denies significant fatigue, denies significant weight loss or weight gain. Past Medical History Past Medical History: Asthma, GERD/Reflux, Hyperlipidemia Additional Past Medical History / Comment(s): Hx Herpes History of Any Multi-Drug Resistant Organisms: None Reported Past Surgical History: Orthopedic Surgery Additional Past Surgical History / Comment(s): rt ankle,EGD, L eye surgery, vasectomy Past Anesthesia/Blood Transfusion Reactions: No Reported Reaction Past Psychological History: No Psychological Hx Reported Additional Psychological History / Comment(s): 2 children live with him every other week. experience. Principal at a school. No international travel. Pet dog when the children are at home. Did not relate any current sexual partners Smoking Status: Never smoker Past Alcohol Use History: Occasional Additional Past Alcohol Use History / Comment(s): 5 beers/ night. Has an occasional cigar Past Drug Use History: None Reported - Past Family History Mother Family Medical History: Cancer Additional Family Medical History / Comment(s): colorectal ca Father Family Medical History: Cancer Additional Family Medical History / Comment(s): testicular ca Medications and Allergies Home Medications and Allergies Comment(s): Current Medications Acetaminophen (Tylenol Tab) 650 mg PO Q6HR PRN PRN Reason: Mild Pain or Fever > 100.5 Last Admin: 10/31/18 16:27 Dose: 650 mg Documented by: Hydrocodone Bitart/Acetaminophen ([place] 5-325) 1 each PO Q6HR PRN PRN Reason: Pain Scale 6 to 10 Last Admin: 10/31/18 11:21 Dose: 1 each Documented by: Alprazolam (Xanax) 0.25 mg PO TID PRN PRN Reason: Anxiety Aspirin (Aspirin) 81 mg PO DAILY [facility] Last Admin: 10/31/18 09:05 Dose: 81 mg Documented by: Famotidine (Pepcid) 20 mg PO BID [facility] Last Admin: 10/31/18 21:01 Dose: 20 mg Documented by: Fenofibrate (Lofibra) 160 mg PO DAILY [facility] Last Admin: 10/31/18 09:06 Dose: 160 mg Documented by: Heparin Sodium (Porcine) (Heparin) 5,000 unit SQ Q12HR [facility] Last Admin: 10/31/18 21:01 Dose: 5,000 unit Documented by: Hydromorphone HCl (Dilaudid) 0.5 mg IVP Q6HR PRN PRN Reason: Pain Scale 8 to 10 Sodium Chloride (Saline 0.9%) 1,000 mls @ 75 mls/hr IV .[id number] [facility] Last Admin: 04/08/19 12:18 Dose: 75 mls/hr Documented by: Vancomycin HCl 1,750 mg/ (Sodium Chloride) 500 mls @ 167 mls/hr IVPB Q12HR [facility] Last Admin: 10/31/18 21:01 Dose: 167 mls/hr Documented by: Ketorolac Tromethamine (Toradol) 30 mg IVP Q6HR [facility] Stop: 11/05/18 17:01 Last Admin: 10/31/18 16:55 Dose: 30 mg Documented by: Lorazepam (Ativan) 1 mg IV Q2HR PRN PRN Reason: CIWA 8 or 9 Lorazepam (Ativan) 1 mg IV Q1HR PRN PRN Reason: CIWA 10 to 15 Lorazepam (Ativan) 2 mg IV Q10M PRN PRN Reason: CIWA 16 or higher Stop: 11/01/18 22:54 Montelukast Sodium (Singulair) 10 mg PO [facility] Last Admin: 10/31/18 21:01 Dose: 10 mg Documented by: Multivitamins (Theragran) 1 each PO DAILY@1200 [facility] Last Admin: 10/31/18 09:06 Dose: 1 each Documented by: Naloxone HCl (Narcan) 0.2 mg IV Q2M PRN PRN Reason: Opioid Reversal Ondansetron HCl (Zofran) 4 mg IVP Q8HR PRN PRN Reason: Nausea And Vomiting Last Admin: 10/31/18 21:46 Dose: 4 mg Documented by: Pantoprazole Sodium (Protonix) 40 mg PO [facility] Sertraline HCl (Zoloft) 50 mg PO [facility] Last Admin: 10/31/18 21:01 Dose: 50 mg Documented by: Temazepam (Restoril) 15 mg PO HS PRN PRN Reason: Insomnia Thiamine HCl (Vitamin B-1) 100 mg PO BID@1200,1700 [facility] Last Admin: 10/31/18 16:28 Dose: 100 mg Documented by: Valacyclovir HCl (Valtrex) 500 mg PO DAILY [facility] Last Admin: 10/31/18 09:08 Dose: 500 mg Documented by: Home Medications Medication Instructions Recorded Confirmed Type Aspirin 81 mg PO DAILY 07/24/15 10/30/18 History Fenofibrate [Tricor] 160 mg PO DAILY 07/24/15 10/30/18 History Montelukast Sodium [Singulair] 10 mg PO HS 07/24/15 10/30/18 History Multivitamins, Thera [Theragran] 1 tab PO DAILY 07/24/15 10/30/18 History Omeprazole 40 mg PO DAILY 07/24/15 10/30/18 History Sertraline HCl [Zoloft] 50 mg PO HS 07/24/15 10/30/18 History valACYclovir [Valtrex] 500 mg PO DAILY 07/24/15 10/30/18 History Allergies Allergy/AdvReac Type Severity Reaction Status Date / Time No Known Allergies Allergy Verified 10/30/18 18:26 Physical Exam Vitals: Vital Signs Temp Pulse Resp BP Pulse Ox 10/31/18 21:30 98.4 F 63 16 137/87 99 10/31/18 17:55 99.1 F 10/31/18 16:58 100.1 F H 10/31/18 16:24 100.3 F H 10/31/18 14:00 99.2 F 73 16 113/78 98 10/31/18 06:27 99.4 F 82 18 120/70 96 10/31/18 01:15 99.6 F Intake and Output 10/31/18 10/31/18 10/31/18 06:59 14:59 22:59 Intake Total 238 421 0378 Output Total 600 600 Balance 710 -100 600 Intake: Intake, IV Titration 710 Amount Sodium Chloride 0.9% 1, 160 000 ml @ 20 mls/hr IV . Q24H [facility] Rx#:[id number] Vancomycin 2,000 mg In 500 Sodium Chloride 0.9% 500 ml 500 ml @ 166.667 mls/ hr IVPB ONCE STA Rx#: [id number] cefTRIAXone 1 gm In 50 Sodium Chloride 0.9% 50 ml @ 100 mls/hr IVPB ONCE STA Rx#:[id number] Oral 500 1200 Output: Urine 600 600 Other: Voiding Method Urinal Urinal # Voids 0 2 HEENT: Anicteric conjunctiva are pink and moist nasal mucosa grossly intact without significant lesions, there is no thrush. Neck: The neck is supple without significant lymphadenopathy or thyromegaly. Lungs: Good bilateral air entry without significant crackles or wheezing. There is no significant bronchial sounds. There is no egophony or dullness. Heart: Regular rate and rhythm with an audible S1-S2, no S3 no S4. There is no significant murmur click or rub, PMI was nondisplaced. Abdomen: Positive bowel sounds soft and nontender without palpable masses or organomegaly. There was no guarding or rebound. Extremities: The upper extremities have excellent pulses they are symmetric, no significant petechiae or telangiectasia. No splinter hemorrhages were noted. The right lower extremity has no abnormalities. Left knee shows evidence of the extensive warmth and erythema over the anterior aspect of the knee. There is palpable effusion. There is distinct tenderness and warmth over the site. However the knee joint itself is not tender and has good range of motion of the knee limited only to the extremes of motion because of the pain over the prepatellar bursa. Neuro: Awake alert oriented to person place and time. There are no acute new gross focal sensory motor deficits. Results CBC & Chem 7: 10/30/18 18:25 10/30/18 18:25 Labs: Abnormal Lab Results - Last 24 Hours (Table) 10/31/18 10/31/18 Range/Units 06:30 12:04 POC Glucose (mg/dL) 114 H (75-99) mg/dL C-Reactive Protein 142.0 H (<10.0) mg/L Microbiology - Last 24 Hours (Table) 10/30/18 18:25 Blood Culture - Preliminary Blood No Growth after 24 hours 10/30/18 18:39 Gram Stain - Preliminary Knee - Left Wound Culture - Preliminary Strep agalactiae - (group b) Laboratory Results WBC 13.9 k/uL (3.8-10.6) H 10/30/18 18:25 RBC 4.42 m/uL (4.30-5.90) 10/30/18 18:25 Hgb 13.6 gm/dL (13.0-17.5) 10/30/18 18:25 Hct 39.8 % (39.0-53.0) 10/30/18 18:25 MCV 90.1 fL (80.0-100.0) 10/30/18 18:25 MCH 30.8 pg (25.0-35.0) 10/30/18 18:25 MCHC 34.2 g/dL (31.0-37.0) 10/30/18 18:25 RDW 16.0 % (11.5-15.5) H 10/30/18 18:25 Plt Count 202 k/uL (150-450) 10/30/18 18:25 Neutrophils % 84 % 10/30/18 18:25 Lymphocytes % 8 % 10/30/18 18:25 Monocytes % 6 % 10/30/18 18:25 Eosinophils % 1 % 10/30/18 18:25 Basophils % 0 % 10/30/18 18:25 Neutrophils # 11.6 k/uL (1.3-7.7) H 10/30/18 18:25 Lymphocytes # 1.2 k/uL (1.0-4.8) 10/30/18 18:25 Monocytes # 0.8 k/uL (0-1.0) 10/30/18 18:25 Eosinophils # 0.2 k/uL (0-0.7) 10/30/18 18:25 Basophils # 0.0 k/uL (0-0.2) 10/30/18 18:25 ESR 8 mm/hr (0-15) 10/31/18 12:04 Sodium 141 mmol/L (137-145) 10/30/18 18:25 Potassium 4.3 mmol/L (3.5-5.1) 10/30/18 18:25 Chloride 108 mmol/L (98-107) H 10/30/18 18:25 Carbon Dioxide 23 mmol/L (22-30) 10/30/18 18:25 Anion Gap 10 mmol/L 10/30/18 18:25 BUN 19 mg/dL (9-20) 10/30/18 18:25 Creatinine 1.14 mg/dL (0.66-1.25) 10/30/18 18:25 Est GFR (CKD-EPI)AfAm 90 (>60 ml/min/1.73 sqM) 10/30/18 18:25 Est GFR (CKD-EPI)NonAf 78 (>60 ml/min/1.73 sqM) 10/30/18 18:25 Glucose 91 mg/dL (74-99) 10/30/18 18:25 POC Glucose (mg/dL) 114 mg/dL (75-99) H 10/31/18 06:30 POC Glu Program Development Specialist Deepa Castro 10/31/18 06:30 Plasma Lactic Acid Jim 1.2 mmol/L (0.7-2.0) 10/30/18 22:05 Uric Acid 5.5 mg/dL (3.5-8.5) 10/31/18 12:04 Calcium 10.1 mg/dL (8.4-10.2) 10/30/18 18:25 C-Reactive Protein 142.0 mg/L (<10.0) H 10/31/18 12:04 Urine Color Yellow 10/30/18 18:39 Urine Appearance Cloudy (Clear) 10/30/18 18:39 Urine pH 7.5 (5.0-8.0) 10/30/18 18:39 Ur Specific [place] 1.020 (1.001-1.035) 10/30/18 18:39 Urine Protein Negative (Negative) 10/30/18 18:39 Urine Glucose (UA) Negative (Negative) 10/30/18 18:39 Urine Ketones Negative (Negative) 10/30/18 18:39 Urine Blood Negative (Negative) 10/30/18 18:39 Urine Nitrite Negative (Negative) 10/30/18 18:39 Urine Bilirubin Negative (Negative) 10/30/18 18:39 Urine Urobilinogen <2.0 mg/dL (<2.0) 10/30/18 18:39 Ur Leukocyte Esterase Negative (Negative) 10/30/18 18:39 Urine WBC 1 /hpf (0-5) 10/30/18 18:39 Amorphous Sediment Rare /hpf (None) H 10/30/18 18:39 Fluid Source Synovial 10/30/18 18:39 Fluid Color [place] 10/30/18 18:39 Fluid Appearance Cloudy 10/30/18 18:39 Fluid RBC 9000 /uL 10/30/18 18:39 Fluid Nucleated Cells 790906 /uL 10/30/18 18:39 Fluid Polynuclear WBCs 100 % 10/30/18 18:39 Influenza Type A RNA Not Detected (Not Detectd) 10/30/18 18:42 Influenza Type B (PCR) Not Detected (Not Detectd) 10/30/18 18:42 Microbiology 10/30/18 18:25 Blood Blood Culture - Preliminary No Growth after 24 hours 10/30/18 18:39 Knee - Left Gram Stain - Preliminary 10/30/18 18:39 Knee - Left Wound Culture - Preliminary Strep agalactiae - (group b) Assessment and Plan (1) Septic bursitis Narrative/Plan: Pleasant 43-year-old male relates to no specific trauma and the rapid onset of pain and swelling to the left knee. Cannot recall any specific event other than just being more active than he had been the last couple of months because of the improvement in the weather. Now is evidence of the distinct left knee prepatellar septic bursitis is noted by the purulent material that was draining from the site. Regretfully crystal analysis was not performed but at this time the fluid appears to be more of a purulent material than gout. He has been seen by orthopedic surgery likable have the drainage of the prepatellar bursa tomorrow to allow the resolution of this acute infectious process. He is having severe pain at the site and ketorolac was added to help his pain c ontrol. Antibiotic therapy has been an issue with vancomycin pending further culture results. May require outpatient intravenous antibiotic therapy Current Visit: Yes Status: Acute Code(s): M71.10 - OTHER INFECTIVE BURSITIS, UNSPECIFIED SITE SNOMED Code(s): 443740820
[2018-11-01] MEDS: SODIUM CHLORIDE 0.9% 1,000 ML IV SCH (04:32)
[2018-11-01] MEDS: KETOROLAC 30 MG/ML 1 ML VIAL IVP SCH ×3 (06:24→18:18)
[2018-11-01 06:32] VITALS: TEMP 98.2
[2018-11-01] MEDS ORDERED: PANTOPRAZOLE 40 MG TABLET PO SCH (07:30)
[2018-11-01] MEDS: FAMOTIDINE 20 MG TAB PO SCH (08:51)
[2018-11-01] MEDS: VANCOMYCIN 1,750 MG in SODIUM CHLORIDE 0.9% 500 ML 500 ML IVPB SCH (08:52)
[2018-11-01] MEDS: MULTIVITAMINS, THERA 1 EACH TAB PO SCH (08:52)
[2018-11-01] MEDS: FENOFIBRATE 160 MG TAB PO SCH (08:52)
[2018-11-01] MEDS: valACYclovir 500 MG TAB PO SCH (08:52)
[2018-11-01] MEDS: THIAMINE 100 MG TAB PO SCH ×2 (12:07→18:17)
[2018-11-01 12:43] LABS: Anion Gap 6 mmol/L; Blood Urea Nitrogen 14 mg/dL (9-20); Calcium 8.9 mg/dL (8.4-10.2); Carbon Dioxide 26 mmol/L (22-30); Chloride 108 mmol/L (98-107); Glucose 85 mg/dL (74-99); Potassium 4.2 mmol/L (3.5-5.1); Sodium 140 mmol/L (137-145)
[2018-11-01 13:10] LABS: Basophils % (A) 0 %; Eosinophils # (A) 0.1 k/uL (0-0.7); Eosinophils % (A) 1 %; HGB 10.7 gm/dL (13.0-17.5); Lymphocytes # (A) 1.1 k/uL (1.0-4.8); Lymphocytes % (A) 14 %; MCH 31.6 pg (25.0-35.0); MCHC 33.4 g/dL (31.0-37.0); MCV 94.6 fL (80.0-100.0); Mean Platelet Volume 7.2; Monocytes # (A) 0.5 k/uL (0-1.0); Monocytes % (A) 7 %; Neutrophils # (A) 5.9 k/uL (1.3-7.7); Neutrophils % (A) 77 %; Platelet Count 160 k/uL (150-450); RBC 3.38 m/uL (4.30-5.90); RDW 13.3 % (11.5-15.5); WBC 7.7 k/uL (3.8-10.6)
[2018-11-01 13:27] VITALS: BP 123/65; PULSE 68; RESP 17
[2018-11-01] MEDS: HEPARIN SODIUM,PORCINE 5,000 UNIT/ML 1 ML VIAL SQ SCH (14:20)
--- NOTE | 2018-11-01 14:24 | P.PN ---
Subjective Progress Note Date: 11/01/18 I met with the patient this afternoon and examined his left knee. The patient feels significantly improved since being started on IV antibiotics and receiving IV Toradol. He is being followed for septic prepatellar bursitis an overlying cellulitis. Overall he is feeling much better and his pain has significantly improved. Clinically there is mild erythema and warmth over the anterior aspect of the knee and significant swelling and fluctuance of the prepatellar bursa. I aspirated 20 mL of dark, straw-colored fluid from the bursa. There is no keeley purulence. The patient tolerated this well and had significant improvement following aspiration. I have no plans for surgical intervention at this time. He is okay to discharge home from an orthopedic standpoint. We will continue to follow while he is in the hospital. Procedure: Verbal consent for a left knee prepatellar bursa aspiration was obtained. The skin over the anterior aspect of the knee was prepped with ChloraPrep. Using sterile technique an 18-gauge needle was inserted directly into the prepatellar bursa and 20 mL's of dark, straw-colored fluid was aspirated. There was no purulence. The needle was withdrawn and a Band-Aid was applied. The patient tolerated this well. Objective - Vital Signs Vital signs: Vital Signs Temp 98.2 F 11/01/18 13:26 Pulse 68 11/01/18 13:26 Resp 17 11/01/18 13:26 BP 123/65 11/01/18 13:26 Pulse Ox 98 11/01/18 13:26 Intake & Output 10/31/18 11/01/18 11/01/18 18:59 06:59 18:59 Intake Total 1700 800 Output Total 1200 500 Balance 500 300 Intake: Intake, IV Titration 800 Amount Sodium Chloride 0.9% 1, 300 000 ml @ 75 mls/hr IV . [id number] [facility] Rx#:[id number] Vancomycin 1,750 mg In 500 Sodium Chloride 0.9% 500 ml 500 ml @ 167 mls/hr IVPB Q12HR [facility] Rx#: [id number] Oral 1700 Output: Urine 1200 500 Other: Voiding Method Urinal Toilet Toilet Urinal # Voids 0 3 2 - Labs CBC & Chem 7: 11/01/18 11:37 11/01/18 11:37 Labs: Abnormal Lab Results - Last 24 Hours (Table) 11/01/18 11/01/18 Range/Units 11:37 11:37 RBC 3.38 L (4.30-5.90) m/uL Hgb 10.7 L (13.0-17.5) gm/dL Hct 32.0 L (39.0-53.0) % Chloride 108 H (98-107) mmol/L Microbiology - Last 24 Hours (Table) 10/30/18 18:25 Blood Culture - Preliminary Blood No Growth after 24 hours 10/30/18 18:39 Gram Stain - Preliminary Knee - Left Wound Culture - Preliminary Strep agalactiae - (group b)
--- NOTE | 2018-11-01 14:45 | P.PN ---
Subjective Progress Note Date: 11/01/18 This patient is a 43 year old male with a past medical history of dyslipidemia who presented to the [facility] ED yesterday afternoon for evaluation of his left knee. The patient states he began to notice pain in the left knee yesterday morning. He then began to notice swelling and erythema of the anterior left knee later on in the day. The patient states he began to lose his appetite, felt nauseated, and very warm around dinner time, patient lost his appetite to eat dinner. Patient presented to the ED last night for evaluation and treatment. Patient was febrile on arrival, temperature was 101 degrees. CBC revealed WBC of 13.1. Aspiration was performed of the prepatellar bursa and fluid analysis revea led 204,000 nucleated cells, 100 polynuclear WBCs, culture is pending. The patient is receiving Vancomycin for antibiotics. Patient was admitted to internal medicine with consults placed to infectious disease and orthopedics. At the time of my exam, the patient states his pain in the left knee is c ontrolled. He states he only experiences pain when the anterior left knee is palpated, or when he is ambulating. The patient states he overall feels better than he did yesterday when he presented to the ED; he is no longer experiencing nausea or additional constitutional symptoms. Patient notes a recent history of a vasectomy, when he states he experienced a mild post-operative infection in this area, and he was given two prescriptions for post-operative antibiotics, he is unsure which antibiotic. Patient states he is no longer experiencing issues from this episode. He has since followed up with his doctor, who is located in [place], per patient. He denies history of septic arthritis or bursitis. Patient denies injury to this knee. Patient denies pain in additional areas of the body. 11/01/18: The patient states overall he is feeling much better today. The patient states he was able to ambulate to the bathroom and take a shower last night, with minimal pain in the left knee. The patient denies fever, chills, nausea, vomiting, or malaise. He denies any new complaints today. Vital signs stable. Objective - Vital Signs Vital signs: Vital Signs Temp 98.2 F 11/01/18 06:31 Pulse 66 11/01/18 06:31 Resp 16 11/01/18 06:31 BP 124/76 11/01/18 06:31 Pulse Ox 96 11/01/18 06:31 Intake & Output 10/31/18 11/01/18 11/01/18 18:59 06:59 18:59 Intake Total 1700 Output Total 1200 Balance 500 Intake: Oral 1700 Output: Urine 1200 Other: Voiding Method Urinal Toilet # Voids 0 3 - Exam On examination, the patient is sitting in bed in no apparent distress. The patient is alert and orientated x3. He appears comfortable. On inspection of the left knee, there is swelling and erythema to the anterior knee. There are no open wounds or lacerations. There is minimal tenderness to palpation of the anterior knee, there is an area of fluctuance of the anterior knee. No tenderness on palpation of the patellar or quadriceps tendon, no tenderness of the popliteal fossa. There is no pain with PROM of the knee. The left lower extremity is warm and well perfused with brisk capillary refill of the toes. No pain with PROM of the left ankle or hip. Left calf is soft and nontender. Vital signs stable. - Labs CBC & Chem 7: 11/01/18 11:37 11/01/18 11:37 Labs: Abnormal Lab Results - Last 24 Hours (Table) 10/31/18 Range/Units 12:04 C-Reactive Protein 142.0 H (<10.0) mg/L Microbiology - Last 24 Hours (Table) 10/30/18 18:25 Blood Culture - Preliminary Blood No Growth after 24 hours 10/30/18 18:39 Gram Stain - Preliminary Knee - Left Wound Culture - Preliminary Strep agalactiae - (group b) Assessment and Plan Assessment: Septic pre-patellar bursitis left knee Plan: - Recommend warm compresses to the left knee. Discontinued MENDEL wrap of the left knee, per Dr. Flowers. - IV antibiotics per infectious disease. Cultures showing group B strep. - We will plan for possible bedside aspiration of the prepatellar bursa this afternoon. Will continue to follow patient and make recommendations accordingly. Patient discussed with Dr. Montes De Oca.
[2018-11-01] MEDS: ACETAMINOPHEN TAB 325 MG TAB PO PRN (18:17)
[2018-11-01] MEDS: ASPIRIN 81 MG PO SCH (18:17)
--- NOTE | 2018-11-01 18:19 | PN ---
PROGRESS NOTE DATE OF SERVICE: 11/01/2018 This 43-year-old gentleman who was admitted with prepatellar bursitis had aspiration done by Orthopedic Surgery. Straw-colored fluid was aspirated. The final cultures are pending. The Gram stain showed Strep agalactiae group B. No chest pain. No palpitations. No fever. PHYSICAL EXAMINATION: Alert and oriented x3. Pulse 68, blood pressure 123/65, respirations 17, temperature 98.2, pulse ox 98% on room air. HEENT: Conjunctivae normal. NECK: No jugular venous distention. CARDIOVASCULAR SYSTEM: S1, S2 muffled. RESPIRATORY SYSTEM: Breath sounds diminished at the bases. No rhonchi. No crackles. ABDOMEN: Soft, non-tender. LEGS: Left knee swelling and erythema present. NERVOUS SYSTEM: No focal deficit. LABS: WBC 7.6, hemoglobin 10.7. ASSESSMENT: 1. Acute left knee prepatellar bursitis with possible acute sepsis, present on admission, status post aspiration, growing Streptococcus agalactiae group B. 2. Increased CRP. 3. Increased white count. 4. History of asthma. 5. History of gastroesophageal reflux disease. 6. Hyperlipidemia. 7. History of degenerative joint disease. 8. History of recent vasectomy. 9. History of herpes. RECOMMENDATIONS AND DISCUSSION: I recommend to continue current medications, continue with the monitoring, symptomatic treatment. Otherwise, continue with IV antibiotics. Guarded prognosis because of multiple complex medical issues. Further recommendations to follow. MMODL / IJN: [id number] /
[2018-11-01] MEDS ORDERED: VANCOMYCIN TROUGH DUE 1 EACH MISC MISCELLANE ONE (20:00)
--- NOTE | 2018-11-01 23:09 | P.PN ---
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 Patient relates that he is a relatively active person and had some routine activities going on on Wednesday. On Wednesday the weather was very nice and he was able to golf about 4 holes of golf. At some work around the yard and was able to get some yard furniture out. He enjoyed some sports on TV. He then had a sudden and rapid onset of pain into his left knee. He rested for a bit and then followed difficulty could not even walk because was feeling so painful and calcium presented to the emergency center. Some fluid was aspirated that showed evidence of a significant amount of white blood cells in it and he was admitted and consults were initiated. The patient has been seen by orthopedics for potential incision and drainage. 11/01/2018 Patient seen by orthopedics repeat aspiration of the left prepatellar bursa occurred. Patient is now considerably improved. Pain swelling discomfort have all markedly improved is up walking without difficulty does not have significant pain within the joint but does have some mild discomfort to the ante rior aspect of the knee. No fevers or chills. Sore to going home. Objective - Vital Signs Vital signs: Vital Signs Temp 98.2 F 11/01/18 13:26 Pulse 68 11/01/18 13:26 Resp 17 11/01/18 13:26 BP 123/65 11/01/18 13:26 Pulse Ox 98 11/01/18 13:26 Intake & Output 11/01/18 11/01/18 11/02/18 06:59 18:59 06:59 Intake Total 1400 Output Total 700 Balance 700 Intake: Intake, IV Titration 800 Amount Sodium Chloride 0.9% 1, 300 000 ml @ 75 mls/hr IV . [id number] [facility] Rx#:[id number] Vancomycin 1,750 mg In 500 Sodium Chloride 0.9% 500 ml 500 ml @ 167 mls/hr IVPB Q12HR [facility] Rx#: [id number] Oral 600 Output: Urine 700 Other: Voiding Method Toilet Toilet Urinal # Voids 3 2 - Exam HEENT: Anicteric conjunctiva are pink and moist nasal mucosa grossly intact without significant lesions, there is no thrush. Neck: The neck is supple without significant lymphadenopathy or thyromegaly. Lungs: Good bilateral air entry without significant crackles or wheezing. There is no significant bronchial sounds. There is no egophony or dullness. Heart: Regular rate and rhythm with an audible S1-S2, no S3 no S4. There is no significant murmur click or rub, PMI was nondisplaced. Abdomen: Positive bowel sounds soft and nontender without palpable masses or organomegaly. There was no guarding or rebound. Extremities: The upper extremities have excellent pulses they are symmetric, no significant petechiae or telangiectasia. No splinter hemorrhages were noted. T he right lower extremity has no abnormalities. the left knee prepatellar area is now much improved. The amount of effusion is generally resolved there is some residual warmth and minimal erythema and mild tenderness but a much improved from prior. However the knee joint itself is not tender and has good range of motion of the knee limited only to the extremes of motion because of the pain over the prepatellar bursa. Neuro: Awake alert oriented to person place and time. There are no acute new gross focal sensory motor deficits. - Labs CBC & Chem 7: 11/01/18 11:37 11/01/18 11:37 Labs: Abnormal Lab Results - Last 24 Hours (Table) 11/01/18 11/01/18 Range/Units 11:37 11:37 RBC 3.38 L (4.30-5.90) m/uL Hgb 10.7 L (13.0-17.5) gm/dL Hct 32.0 L (39.0-53.0) % Chloride 108 H (98-107) mmol/L Microbiology - Last 24 Hours (Table) 10/30/18 18:25 Blood Culture - Preliminary Blood No Growth after 48 hours 10/30/18 18:39 Gram Stain - Final Knee - Left Wound Culture - Final Strep agalactiae - (group b) Laboratory Results WBC 7.7 k/uL (3.8-10.6) 11/01/18 11:37 RBC 3.38 m/uL (4.30-5.90) L 11/01/18 11:37 Hgb 10.7 gm/dL (13.0-17.5) L 11/01/18 11:37 Hct 32.0 % (39.0-53.0) L 11/01/18 11:37 MCV 94.6 fL (80.0-100.0) 11/01/18 11:37 MCH 31.6 pg (25.0-35.0) 11/01/18 11:37 MCHC 33.4 g/dL (31.0-37.0) 11/01/18 11:37 RDW 13.3 % (11.5-15.5) 11/01/18 11:37 Plt Count 160 k/uL (150-450) 11/01/18 11:37 Neutrophils % 77 % 11/01/18 11:37 Lymphocytes % 14 % 11/01/18 11:37 Monocytes % 7 % 11/01/18 11:37 Eosinophils % 1 % 11/01/18 11:37 Basophils % 0 % 11/01/18 11:37 Neutrophils # 5.9 k/uL (1.3-7.7) 11/01/18 11:37 Lymphocytes # 1.1 k/uL (1.0-4.8) 11/01/18 11:37 Monocytes # 0.5 k/uL (0-1.0) 11/01/18 11:37 Eosinophils # 0.1 k/uL (0-0.7) 11/01/18 11:37 Basophils # 0.0 k/uL (0-0.2) 11/01/18 11:37 ESR 8 mm/hr (0-15) 10/31/18 12:04 Sodium 140 mmol/L (137-145) 11/01/18 11:37 Potassium 4.2 mmol/L (3.5-5.1) 11/01/18 11:37 Chloride 108 mmol/L (98-107) H 11/01/18 11:37 Carbon Dioxide 26 mmol/L (22-30) 11/01/18 11:37 Anion Gap 6 mmol/L 11/01/18 11:37 BUN 14 mg/dL (9-20) 11/01/18 11:37 Creatinine 0.96 mg/dL (0.66-1.25) 11/01/18 11:37 Est GFR (CKD-EPI)AfAm >90 (>60 ml/min/1.73 sqM) 11/01/18 11:37 Est GFR (CKD-EPI)NonAf >90 (>60 ml/min/1.73 sqM) 11/01/18 11:37 Glucose 85 mg/dL (74-99) 11/01/18 11:37 POC Glucose (mg/dL) 114 mg/dL (75-99) H 10/31/18 06:30 POC Glu Apple Thinner ID Deepa Weston 10/31/18 06:30 Plasma Lactic Acid Jim 1.2 mmol/L (0.7-2.0) 10/30/18 22:05 Uric Acid 5.5 mg/dL (3.5-8.5) 10/31/18 12:04 Calcium 8.9 mg/dL (8.4-10.2) 11/01/18 11:37 C-Reactive Protein 142.0 mg/L (<10.0) H 10/31/18 12:04 Urine Color Yellow 10/30/18 18:39 Urine Appearance Cloudy (Clear) 10/30/18 18:39 Urine pH 7.5 (5.0-8.0) 10/30/18 18:39 Ur Specific [place] 1.020 (1.001-1.035) 10/30/18 18:39 Urine Protein Negative (Negative) 10/30/18 18:39 Urine Glucose (UA) Negative (Negative) 10/30/18 18:39 Urine Ketones Negative (Negative) 10/30/18 18:39 Urine Blood Negative (Negative) 10/30/18 18:39 Urine Nitrite Negative (Negative) 10/30/18 18:39 Urine Bilirubin Negative (Negative) 10/30/18 18:39 Urine Urobilinogen <2.0 mg/dL (<2.0) 10/30/18 18:39 Ur Leukocyte Esterase Negative (Negative) 10/30/18 18:39 Urine WBC 1 /hpf (0-5) 10/30/18 18:39 Amorphous Sediment Rare /hpf (None) H 10/30/18 18:39 Fluid Source Synovial 10/30/18 18:39 Fluid Color [place] 10/30/18 18:39 Fluid Appearance Cloudy 10/30/18 18:39 Fluid RBC 9000 /uL 10/30/18 18:39 Fluid Nucleated Cells [id number] /uL 10/30/18 18:39 Fluid Polynuclear WBCs 100 % 10/30/18 18:39 Influenza Type A RNA Not Detected (Not Detectd) 10/30/18 18:42 Influenza Type B (PCR) Not Detected (Not Detectd) 10/30/18 18:42 Microbiology 10/30/18 18:25 Blood Blood Culture - Preliminary No Growth after 48 hours 10/30/18 18:39 Knee - Left Gram Stain - Final 10/30/18 18:39 Knee - Left Wound Culture - Final Strep agalactiae - (group b) Assessment and Plan (1) Septic bursitis Narrative/Plan: Pleasant 43-year-old male relates to no specific trauma and the rapid onset of pain and swelling to the left knee. Cannot recall any specific event other than just being more active than he had been the last couple of months because of the improvement in the weather. Now is evidence of the distinct left knee prepatellar septic bursitis is noted by the purulent material that was draining from the site. Regretfully crystal analysis was not performed but at this time the fluid appears to be more of a purulent material than gout. He has been seen by orthopedic surgery likable have the drainage of the prepatellar bursa tomorrow to allow the resolution of this acute infectious process. He is having severe pain at the site and ketorolac was added to help his pain control. Antibiotic therapy has been an issue with vancomycin pending further culture results. May require outpatient intravenous antibiotic therapy 11/01/2018 patient is evidence of the left prepatellar septic bursitis that is now showing marked improvement status post the aspirations from orthopedic surgery. Group B strep was isolated and constantly there are plans for discharge home without surgical intervention. Antibiotic therapy with cefuroxime as been requested for the home setting. She'll follow-up with orthopedics in the next 5-7 days if there is any ongoing difficulties up Is seen in the office at that point in time. Anti-inflammatories for pain control. Toradol was highly effective.he will be going home today his antibiotic is sent to pharmacy. Status: Acute Code(s): M71.10 - OTHER INFECTIVE BURSITIS, UNSPECIFIED SITE SNOMED Code(s): 727809015
--- NOTE | 2018-11-02 10:32 | DS ---
DISCHARGE SUMMARY FINAL DIAGNOSES: 1. Acute left knee prepatellar bursitis with possible acute present on admission, status post aspiration growing strep agalactiae group B. 2. Increased CRP. 3. Increased WBC. 4. History of asthma. 5. History of GERD. 6. Hyperlipidemia. 7. History of degenerative joint disease. 8. History of recent vasectomy. DISCHARGE DISPOSITION: The patient will be discharged in a stable condition with guarded prognosis HISTORY OF PRESENT ILLNESS: This is a 43-year-old gentleman with past medical history of multiple medical problems admitted with acute left knee prepatellar bursitis. The patient was treated with aspiration by Orthopedic Surgery and Infectious Disease evaluation. by Dr. Flowers. Patient improved significantly. On exam, vital are stable. CARDIOVASCULAR SYSTEM: S1, S2. ABDOMEN: Soft. NERVOUS SYSTEM: No focal deficit. LEFT KNEE: Pain and swelling. DISCHARGE ADVICE: Diet is cardiac diet. FOLLOWUP: Follow up with Dr. Colten Romero in 1-2 days. Follow up with Dr. Montes De Oca as recommended. MEDICATIONS ARE: 1. Aspirin 81 mg. 2. Low-fiber 160 mg p.o. daily. 3. Multivitamin 1 p.o. daily. 4. Omeprazole 40 mg daily. 5. Singular 10 mg q.h.s. 6. Valtrex 500 mg p.o. daily. 7. Zoloft 50 mg q.h.s. 8. Ceftin 500 mg p.o. b.i.d. for 10 days. 9. Motrin p.r.n. 10.Tylenol p.r.n. Once again the patient will be discharged in a stable condition with guarded prognosis. MMODL / IJN: [id number] /
== END 2018-11-01 18:30 | disposition home or self-care (01) | DRG 872 ==
LOC: EC 17:41 → 4MS4W 20:22
PROVIDERS: ADMIT Hospitalist; ATTEND Hospitalist
PROC: 0S9D3ZX Drainage of Left Knee Joint, Percutaneous Approach, Diagnostic (ICD-10-PCS; principal; 2018-10-30)
DX: A40.1 Sepsis due to streptococcus, group B (principal); L03.116 Cellulitis of left lower limb; B00.9 Herpesviral infection, unspecified; E78.5 Hyperlipidemia, unspecified; F17.290 Nicotine dependence, other tobacco product, uncomplicated; I10 Essential (primary) hypertension; J45.909 Unspecified asthma, uncomplicated; K21.9 Gastro-esophageal reflux disease without esophagitis; M70.42 Prepatellar bursitis, left knee; Z79.82 Long term (current) use of aspirin; Z79.899 Other long term (current) drug therapy; Z80.0 Family history of malignant neoplasm of digestive organs; Z80.43 Family history of malignant neoplasm of testis; Z98.890 Other specified postprocedural states; M19.90 Unspecified osteoarthritis, unspecified site
CPT/HCPCS: 36415; 80048; 81001; 83605; 84550; 85025; 85652; 86140; 87040; 87070; 87075; 87205; 87502; 89050; 96365; 96366; 96367; 99284

== ENCOUNTER 2018-11-08 16:17 | Emergency (ER) | payer BC ==
[2018-11-08 16:36] VITALS: RESP 18
[2018-11-08] MEDS ORDERED: OXYMETAZOLINE 0.05% NASL SPRAY 1 SPRAY BOTTLE NASAL STA (16:37)
[2018-11-08] MEDS ORDERED: SILVER NITRATE APPLICATOR 1 EACH STICK..EA. TOPICAL STA (18:06)
--- NOTE | 2018-11-08 18:21 | ED ---
General Adult HPI - General Chief complaint: ENT Stated complaint: Nosebleed Time Seen by Provider: 11/08/18 16:37 Source: patient, RN notes reviewed, old records reviewed Mode of arrival: ambulatory Limitations: no limitations - History of Present Illness Initial comments: 43-year-old male patient with no pertinent past medical history presents to ED with left anterior epistaxis. Patient states that this initially started approximate 5:00 this morning, patient presented to urgent care, port he had a cauterization. Patient reports that he had sudden onset of bleeding out of his left naris approximate 1 hour prior to presentation ED. Patient denies any other complaints today. Systemic: Pt denies fatigue, myalgia, fever/chills, rash. Pt denies weakness, night sweats, weight loss. Neuro: Pt denies headache, visual disturbances, syncope or pre-syncope. HEENT: Pt denies ocular discharge or irritation, otalgia, rhinorrhea, pharyngitis or notable lymphadenopathy. Cardiopulmonary: Pt denies chest pain, SOB, heart palpitations, dyspnea on exertion. Abdominal/GI: Pt denies abdominal pain, n/v/d. : Pt denies dysuria, burning w/ urination, frequency/urgency. Denies new onset urinary or bowel incontinence. MSK: Pt denies myalgia, loss of strength or function in extremities. Neuro: Pt denies new onset weakness, paresthesias. - Related Data Home Medications Medication Instructions Recorded Confirmed Aspirin 81 mg PO DAILY 07/24/15 11/08/18 Fenofibrate [Lofibra] 160 mg PO DAILY 07/24/15 11/08/18 Montelukast Sodium [Singulair] 10 mg PO HS 07/24/15 11/08/18 Multivitamins, Thera [Multivitamin 1 tab PO DAILY 07/24/15 11/08/18 (formulary)] Omeprazole 40 mg PO DAILY 07/24/15 11/08/18 Sertraline HCl [Zoloft] 50 mg PO HS 07/24/15 11/08/18 valACYclovir [Valtrex] 500 mg PO DAILY 07/24/15 11/08/18 Previous Rx's Medication Instructions Recorded Acetaminophen Tab [Tylenol] 650 mg PO Q6HR PRN tab 11/01/18 Cefuroxime Axetil [Ceftin] 500 mg PO BID #20 tab 11/01/18 Ibuprofen [Motrin] 200 mg PO Q6HR PRN #1 tab 11/01/18 Amoxicillin/Potassium Clav 1 each PO Q12HR #20 tab 11/08/18 [Augmentin 875-125 Tablet] Allergies Allergy/AdvReac Type Severity Reaction Status Date / Time No Known Allergies Allergy Verified 10/30/18 18:26 Review of Systems ROS Statement: Those systems with pertinent positive or pertinent negative responses have been documented in the HPI. ROS Other: All systems not noted in ROS Statement are negative. Past Medical History Past Medical History: Asthma, GERD/Reflux, Hyperlipidemia Additional Past Medical History / Comment(s): Hx Herpes History of Any Multi-Drug Resistant Organisms: None Reported Past Surgical History: Orthopedic Surgery Additional Past Surgical History / Comment(s): rt ankle,EGD, L eye surgery, vasectomy Past Anesthesia/Blood Transfusion Reactions: No Reported Reaction Past Psychological History: No Psychological Hx Reported Smoking Status: Never smoker Past Alcohol Use History: Occasional Past Drug Use History: None Reported - Past Family History Mother Family Medical History: Cancer Additional Family Medical History / Comment(s): colorectal ca Father Family Medical History: Cancer Additional Family Medical History / Comment(s): testicular ca General Exam - General Exam Comments Initial Comments: Constitutional: NAD, AOX3, Pt has pleasant affect. HEENT: NC/AT, trachea midline, neck supple, no lymphadenopathy. Posterior pharynx non erythematous, without exudates. External ears appear normal, without discharge. Mucous membranes moist. Eyes PERRLA, EOM intact. There is no scleral icterus. No pallor noted. Mild anterior epistaxis noted in left nare. Cardiopulmonary: RRR, no murmurs, rubs or gallops, no JVD noted. Lungs CTAB in anterior and posterior banda. No peripheral edema. Abdominal exam: Abdomen soft and non-distended. Abdomen non-tender to palpation in all 4 quadrants. Bowel sounds active in LLQ. No hepatosplenomegaly. No ecchymosis Neuro: CN II-XII intact. No nuchal rigidity. MSK: No posterior calf tenderness bilaterally, homans sign negative bilaterally. Posterior tibialis and radial pulse +2 bilaterally. Sensation intact in upper and lower extremities. Full active ROM in upper and lower extremities, 5/5 stregnth. Limitations: no limitations Course Vital Signs 11/08/18 16:33 Temperature 98.1 F Pulse Rate 89 Respiratory 18 Rate Blood Pressure 132/87 O2 Sat by Pulse 97 Oximetry Medical Decision Making - Medical Decision Making 43-year-old male patient with no pertinent past medical history presents to ED with left anterior epistaxis. Patient states that this initially started approximate 5:00 this morning, patient presented to urgent care, port he had a cauterization. Patient reports that he had sudden onset of bleeding out of his left naris approximate 1 hour prior to presentation ED. Patient denies any other complaints today. Patient cital signs stable, afebrile. Physical exam displayed: Mild anterior epistaxis noted in left nare. Trial of nasal clamp and Afrin was unaffected. Patient left hand packs for anterior epistaxis. Patient discharged, we placed on Augmentin. Patient will be given ENT follow- up. Patient to follow up with ENT tomorrow. Patient will return to ER physician worsens in any way. Case discussed with Dr. Ponce. Disposition Clinical Impression: Anterior epistaxis Disposition: HOME SELF-CARE Condition: Stable Instructions (If sedation given, give patient instructions): Nosebleed (ED) Additional Instructions: Patient to adhere to previously discussed treatment plan and will take medication(s) as directed. Patient to follow up with PCP in 1-2 days. Patient to return to ED if symptoms do not improve. Follow-up with ENT referral tomorrow. Take antibiotics as prescribed. If unable to follow up ENT within 3 days must return to ER for packing removal. Prescriptions: Amoxicillin/Potassium Clav [Augmentin 875-125 Tablet] 1 each PO Q12HR #20 tab Is patient prescribed a controlled substance at d/c from ED?: No Referrals: Colten Romero MD [Primary Care Provider] - 1-2 days Time of Disposition: 19:55
--- NOTE | 2018-11-08 19:56 | ED ---
Medical Decision Making - Medical Decision Making ENT referral added Disposition Clinical Impression: Anterior epistaxis Disposition: HOME SELF-CARE Condition: Stable Instructions (If sedation given, give patient instructions): Nosebleed (ED) Additional Instructions: Patient to adhere to previously discussed treatment plan and will take medication(s) as directed. Patient to follow up with PCP in 1-2 days. Patient to return to ED if symptoms do not improve. Follow-up with ENT referral tomorrow. Take antibiotics as prescribed. If unable to follow up ENT within 3 days must return to ER for packing removal. Prescriptions: Amoxicillin/Potassium Clav [Augmentin 875-125 Tablet] 1 each PO Q12HR #20 tab Is patient prescribed a controlled substance at d/c from ED?: No Referrals: Colten Romero MD [Primary Care Provider] - 1-2 days Eloy Carvajal MD [STAFF PHYSICIAN] - 1-2 days
[2018-11-08 20:14] VITALS: BP 137/83; PULSE 87; TEMP 98.2
--- NOTE | 2018-11-09 06:11 | CDI ---
Documentation Clarification OP Dear Samir GARAY, PAC Please provide epistaxis complete procedure note. Thank you, Hugo Mejia Programmer Operator Numerical Control If you have any questions, please contact [employer] at [phone] [facility]
--- NOTE | 2018-11-22 15:28 | ED ---
Disposition Clinical Impression: Anterior epistaxis Disposition: HOME SELF-CARE Condition: Stable Instructions (If sedation given, give patient instructions): Nosebleed (ED) Additional Instructions: Patient to adhere to previously discussed treatment plan and will take medication(s) as directed. Patient to follow up with PCP in 1-2 days. Patient to return to ED if symptoms do not improve. Follow-up with ENT referral tomorrow. Take antibiotics as prescribed. If unable to follow up ENT within 3 days must return to ER for packing removal. Is patient prescribed a controlled substance at d/c from ED?: No Referrals: Colten Romero MD [Primary Care Provider] - 1-2 days Eloy Carvajal MD [STAFF PHYSICIAN] - 1-2 days Procedures - Procedures Initial comment: anterior packing in L nare
== END 2018-11-08 20:10 | disposition home or self-care (01) ==
LOC: EC 16:17
DX: R04.0 Epistaxis (principal); J45.909 Unspecified asthma, uncomplicated; K21.9 Gastro-esophageal reflux disease without esophagitis; E78.5 Hyperlipidemia, unspecified; Z79.82 Long term (current) use of aspirin; Z79.899 Other long term (current) drug therapy
CPT/HCPCS: 30901; 99283

== ENCOUNTER 2018-11-09 10:10 | Emergency (ER) | payer BC ==
[2018-11-09 10:13] VITALS: TEMP 98.6
--- NOTE | 2018-11-09 10:50 | ED ---
ENT HPI - General Chief complaint: ENT Stated complaint: Nosebleed Time Seen by Provider: 11/09/18 10:20 Source: patient, RN notes reviewed, old records reviewed Mode of arrival: ambulatory Limitations: no limitations - History of Present Illness Initial comments: 43-year-old male presents emergency Department today with complaints of 17 hours of a left near nosebleed. Patient was evaluated yesterday and had anterior packing placed. Patient reports that he's been bleeding through the packing. He states he called ENT and they were not able to see the Patient until December 18. Patient reports that he has had a recent history of septic bursitis over the left knee. He was admitted to the hospital last week. Discharged last Wednesday. Patient states that he is not on any blood thinners. Patient denies any trauma to the nose. - Related Data Home Medications Medication Instructions Recorded Confirmed Aspirin 81 mg PO DAILY 07/24/15 11/09/18 Fenofibrate [Lofibra] 160 mg PO DAILY 07/24/15 11/09/18 Montelukast Sodium [Singulair] 10 mg PO HS 07/24/15 11/09/18 Multivitamins, Thera [Multivitamin 1 tab PO DAILY 07/24/15 11/09/18 (formulary)] Omeprazole 40 mg PO DAILY 07/24/15 11/09/18 Sertraline HCl [Zoloft] 50 mg PO HS 07/24/15 11/09/18 valACYclovir [Valtrex] 500 mg PO DAILY 07/24/15 11/09/18 Loratadine [Claritin] 10 mg PO DAILY 11/09/18 11/09/18 Previous Rx's Medication Instructions Recorded Cefuroxime Axetil [Ceftin] 500 mg PO BID #20 tab 11/01/18 Ibuprofen [Motrin] 200 mg PO Q6HR PRN #1 tab 11/01/18 Amoxic-Pot Clav 875-125Mg 1 tab PO Q12HR #20 tablet 11/09/18 [Augmentin 875-125] HYDROcodone/APAP 5-325MG [[place] 1 - 2 tab PO Q4HR PRN #18 tab 11/09/18 5-325] Allergies Allergy/AdvReac Type Severity Reaction Status Date / Time No Known Allergies Allergy Verified 11/09/18 10:35 Review of Systems ROS Statement: Those systems with pertinent positive or pertinent negative responses have been documented in the HPI. ROS Other: All systems not noted in ROS Statement are negative. Past Medical History Past Medical History: Asthma, GERD/Reflux, Hyperlipidemia Additional Past Medical History / Comment(s): Hx Herpes History of Any Multi-Drug Resistant Organisms: None Reported Past Surgical History: Orthopedic Surgery Additional Past Surgical History / Comment(s): rt ankle,EGD, L eye surgery, vasectomy Past Anesthesia/Blood Transfusion Reactions: No Reported Reaction Past Psychological History: No Psychological Hx Reported Smoking Status: Never smoker Past Alcohol Use History: Occasional Past Drug Use History: None Reported - Past Family History Mother Family Medical History: Cancer Additional Family Medical History / Comment(s): colorectal ca Father Family Medical History: Cancer Additional Family Medical History / Comment(s): testicular ca General Exam - General Exam Comments Initial Comments: 43-year-old male. Alert and oriented. No significant distress. Limitations: no limitations General appearance: alert, in no apparent distress Head exam: Present: atraumatic, normocephalic, normal inspection Eye exam: Present: normal appearance, PERRL, EOMI. Absent: scleral icterus, conjunctival injection, periorbital swelling ENT exam: Present: normal exam, mucous membranes moist. Absent: other (Patient has a significant anterior l nare epistaxis. bleeding through merocel. ) Neck exam: Present: normal inspection. Absent: tenderness, meningismus, lymphadenopathy Respiratory exam: Present: normal lung sounds bilaterally. Absent: respiratory distress, wheezes, rales, rhonchi, stridor Cardiovascular Exam: Present: regular rate, normal rhythm, normal heart sounds. Absent: systolic murmur, diastolic murmur, rubs, gallop, clicks GI/Abdominal exam: Present: soft, normal bowel sounds. Absent: distended, tenderness, guarding, rebound, rigid Extremities exam: Present: normal inspection, full ROM, normal capillary refill. Absent: tenderness, pedal edema, joint swelling, calf tenderness Back exam: Present: normal inspection Neurological exam: Present: alert, oriented X3, CN II-XII intact Psychiatric exam: Present: normal affect, normal mood Skin exam: Present: warm, dry, intact, normal color. Absent: rash Course Vital Signs 11/09/18 11/09/18 11/09/18 10:11 12:02 12:53 Temperature 98.6 F Pulse Rate 87 86 75 Respiratory 18 20 18 Rate Blood Pressure 146/89 142/110 141/99 O2 Sat by Pulse 97 97 94 L Oximetry 11/09/18 11/09/18 14:17 15:03 Temperature Pulse Rate 73 82 Respiratory 18 20 Rate Blood Pressure 157/105 141/111 O2 Sat by Pulse 95 98 Oximetry Procedures - Procedures Initial comment: 43-year-old male presents emergency department today complains of nosebleed. Patient had Merocel packing removed. Patient had significant anterior left- sided nosebleed. A instilled to packs of Merisel within the nose and watch the Patient. He continue to have bleeding, through the left eye. Patient has continued bleeding so the tube Merisel packings were removed and Rhino Rocket was instilled with topical TXA placed as well. Patient tolerated these procedures well. Medical Decision Making - Medical Decision Making This Is a 43-year-old year male with complaint of left nosebleed. Patient had significant anterior nosebleed bleeding through packing. Patient had the Merocel packing removed and I instilled a double Merocel pack. Patient gets an ER for approximately an hour and a half and continued to have significant bleeding coming from the other side and through the nasal lacrimal duct of the left eye. Patient blood work was reviewed hemoglobin is stable. Patient eventually had a double Merocel packing removed and Rhino Rocket was instilled. After this was instilled Patient bleeding was controlled. I discussed the case with the office of ENT. They will see the Patient at 8 AM on Wednesday. Discussed the Patient will be discharged with a short course of pain medicine and Augmentin. - Lab Data Result diagrams: 11/09/18 11:00 11/09/18 11:00 Lab Results 11/09/18 11/09/18 11/09/18 Range/Units 10:57 11:00 11:00 WBC 8.0 (3.8-10.6) k/uL RBC 4.38 (4.30-5.90) m/uL Hgb 13.6 (13.0-17.5) gm/dL Hct 41.3 (39.0-53.0) % MCV 94.3 (80.0-100.0) fL MCH 31.0 (25.0-35.0) pg MCHC 32.9 (31.0-37.0) g/dL RDW 13.3 (11.5-15.5) % Plt Count 395 D (150-450) k/uL Neutrophils % 67 % Lymphocytes % 24 % Monocytes % 6 % Eosinophils % 1 % Basophils % 0 % Neutrophils # 5.4 (1.3-7.7) k/uL Lymphocytes # 2.0 (1.0-4.8) k/uL Monocytes # 0.5 (0-1.0) k/uL Eosinophils # 0.1 (0-0.7) k/uL Basophils # 0.0 (0-0.2) k/uL PT (9.0-12.0) sec INR (<1.2) APTT (22.0-30.0) sec Sodium 141 (137-145) mmol/L Potassium 4.8 (3.5-5.1) mmol/L Chloride 105 (98-107) mmol/L Carbon Dioxide 28 (22-30) mmol/L Anion Gap 8 mmol/L BUN 28 H (9-20) mg/dL Creatinine 1.09 (0.66-1.25) mg/dL Est GFR (CKD-EPI)AfAm >90 (>60 ml/min/1.73 sqM) Est GFR (CKD-EPI)NonAf 82 (>60 ml/min/1.73 sqM) Glucose 119 H (74-99) mg/dL Calcium 10.4 H (8.4-10.2) mg/dL Blood Type O Positive Blood Type Confirm Blood Type Recheck CABO Indicated Antibody Screen NEGATIVE Spec Expiration Date 11/12/2018 - 229911/09/18 11/09/18 Range/Units 11:00 11:00 WBC (3.8-10.6) k/uL RBC (4.30-5.90) m/uL Hgb (13.0-17.5) gm/dL Hct (39.0-53.0) % MCV (80.0-100.0) fL MCH (25.0-35.0) pg MCHC (31.0-37.0) g/dL RDW (11.5-15.5) % Plt Count (150-450) k/uL Neutrophils % % Lymphocytes % % Monocytes % % Eosinophils % % Basophils % % Neutrophils # (1.3-7.7) k/uL Lymphocytes # (1.0-4.8) k/uL Monocytes # (0-1.0) k/uL Eosinophils # (0-0.7) k/uL Basophils # (0-0.2) k/uL PT 10.9 (9.0-12.0) sec INR 1.0 (<1.2) APTT 24.7 (22.0-30.0) sec Sodium (137-145) mmol/L Potassium (3.5-5.1) mmol/L Chloride (98-107) mmol/L Carbon Dioxide (22-30) mmol/L Anion Gap mmol/L BUN (9-20) mg/dL Creatinine (0.66-1.25) mg/dL Est GFR (CKD-EPI)AfAm (>60 ml/min/1.73 sqM) Est GFR (CKD-EPI)NonAf (>60 ml/min/1.73 sqM) Glucose (74-99) mg/dL Calcium (8.4-10.2) mg/dL Blood Type Blood Type Confirm O Positive Blood Type Recheck Antibody Screen Spec Expiration Date Disposition Clinical Impression: Recurrent epistaxis Disposition: HOME SELF-CARE Condition: Good Instructions (If sedation given, give patient instructions): Nosebleed (ED) Additional Instructions: Patient advised to have close follow-up with primary care doctor and ENT. Keep your appointment at 8 AM on Wednesday with her nose and throat doctor. Patient should return to emergency department if any alarming signs or symptoms occur. Prescriptions: Amoxic-Pot Clav 875-125Mg [Augmentin 875-125] 1 tab PO Q12HR #20 tablet HYDROcodone/APAP 5-325MG [[place] 5-325] 1 - 2 tab PO Q4HR PRN #18 tab PRN Reason: Pain Is patient prescribed a controlled substance at d/c from ED?: Yes If prescribed controlled substance>3 days was MAPS reviewed?: Prescribed <3 Days If opioid is for acute pain is fill amount 7 days or less?: Yes If Rx opioid, was Start Talking consent form obtained?: Yes Referrals: Colten Romero MD [Primary Care Provider] - 1-2 days Eloy Carvajal MD [STAFF PHYSICIAN] - 1-2 days Time of Disposition: 15:03
[2018-11-09] MEDS ORDERED: OXYMETAZOLINE 0.05% NASL SPRAY 1 SPRAY BOTTLE NASAL STA (10:51)
[2018-11-09 11:23] LABS: Basophils % (A) 0 %; Eosinophils # (A) 0.1 k/uL (0-0.7); Eosinophils % (A) 1 %; HCT 41.3 % (39.0-53.0); HGB 13.6 gm/dL (13.0-17.5); Lymphocytes % (A) 24 %; MCHC 32.9 g/dL (31.0-37.0); MCV 94.3 fL (80.0-100.0); Mean Platelet Volume 6.7; Monocytes # (A) 0.5 k/uL (0-1.0); Monocytes % (A) 6 %; Neutrophils # (A) 5.4 k/uL (1.3-7.7); Neutrophils % (A) 67 %; RBC 4.38 m/uL (4.30-5.90); RDW 13.3 % (11.5-15.5)
[2018-11-09 11:24] LABS: Partial Thromboplastin Time 24.7 sec (22.0-30.0); Prothrombin Time 10.9 sec (9.0-12.0)
[2018-11-09 11:25] LABS: Anion Gap 8 mmol/L; Blood Urea Nitrogen 28 mg/dL (9-20); Calcium 10.4 mg/dL (8.4-10.2); Carbon Dioxide 28 mmol/L (22-30); Chloride 105 mmol/L (98-107); Glucose 119 mg/dL (74-99); Potassium 4.8 mmol/L (3.5-5.1); Sodium 141 mmol/L (137-145)
[2018-11-09 11:32] LABS: Platelet Count 395 k/uL (150-450)
[2018-11-09] MEDS ORDERED: MORPHINE SULFATE 2 MG/ML SYRINGE IVP STA (12:07)
[2018-11-09] MEDS ORDERED: LORazepam 2 MG/ML INJ IV STA (12:35)
[2018-11-09] MEDS ORDERED: TRANEXAMIC ACID 1,000 MG/10 ML VIAL MISCELLANE STA (12:52)
[2018-11-09] MEDS ORDERED: MORPHINE SULFATE 4 MG/ML SYRINGE IVP STA (13:50)
[2018-11-09] MEDS ORDERED: ONDANSETRON 4 MG/2 ML VIAL IVP STA (13:58)
[2018-11-09] MEDS ORDERED: AMOXIC-POT CLAV 875MG STARTER 2 EACH TABLET PO STA (15:01)
[2018-11-09] MEDS ORDERED: ACET/COD 300 MG/30 MG STARTER PACK 6 TAB BTL PO STA (15:02)
[2018-11-09 15:04] VITALS: BP 141/111; PULSE 82; RESP 20
== END 2018-11-09 15:17 | disposition home or self-care (01) ==
LOC: EC 10:10
DX: R04.0 Epistaxis (principal); J45.909 Unspecified asthma, uncomplicated; K21.9 Gastro-esophageal reflux disease without esophagitis; E78.5 Hyperlipidemia, unspecified; Z98.52 Vasectomy status; Z98.890 Other specified postprocedural states; Z79.82 Long term (current) use of aspirin; Z79.899 Other long term (current) drug therapy
CPT/HCPCS: 36415; 86900; 86901; 80048; 85025; 85610; 85730; 86850; 99284; 30901; 96374; 96375 ×2; 96376; J2060; J2270 ×2; J2405

== ENCOUNTER → 2021-09-02 | Outpatient (CLI) | payer BC ==
--- NOTE | 2021-09-02 07:44 | CT ---
EXAMINATION TYPE: CT sinus wo con DATE OF EXAM: 09/02/2021 COMPARISON: NONE HISTORY: sinusitis chronic per order. CT DLP: 624.2 mGycm. Automated Exposure Control for Dose Reduction was Utilized. TECHNIQUE: CT scan of the sinuses is performed without contrast, axial images are obtained, coronal r eformatted images are also reviewed. FINDINGS: Minimal mucosal thickening in the inferior right maxillary sinus. Mild to moderate lobulat ed mucosal thickening in the inferior left maxillary sinus. [id number] mucosal thickening in th e ethmoid sinuses bilaterally. Minimal mucosal thickening in the inferior aspect of the bilateral sph enoid sinuses. No suspicious opacification or air-fluid levels in the paranasal sinuses. The ostiomea crystal complex is patent bilaterally on the coronal images. Nasal septum is deviated to right of midline inferior posterior aspect. Visualized portion of mastoid air cells show no abnormal opacification. The globes are intact bilate rally. IMPRESSION: Chronic paranasal sinus disease as detailed above. No acute sinusitis currently.
== END | disposition home or self-care (01) ==
LOC: RADCTMAIN 07:09
PROVIDERS: ATTEND Internal Medicine
DX: J34.2 Deviated nasal septum (principal); J34.89 Other specified disorders of nose and nasal sinuses
CPT/HCPCS: 70486

== ENCOUNTER 2021-10-14 09:07 | Day surgery (SDC) | payer BC ==
[2021-10-13 08:17] VITALS: BMI 31.6
[~2021-10-14 09:07] MED LIST: LACTATED RINGERS 1,000 ML IV SCH; LIDOCAINE 1% (10MG/ML) FOR IV START INTRADERMA PRN
[2021-10-14 10:02] VITALS: RESP 16; TEMP 97.6
[2021-10-14] MEDS ORDERED: LIDOCAINE 1% INJ 10MG/ML (20 ML MDV) ONE (10:42)
[2021-10-14] MEDS ORDERED: PROPOFOL 10 MG/ML 20 ML VIAL IV ONE (10:42)
--- NOTE | 2021-10-14 10:56 | P.PCN ---
Date of Procedure: 10/14/21 Procedure(s) Performed: BRIEF HISTORY: Patient is a 46-year-old, pleasant, white male scheduled for an upper endoscopy as a part of evaluation of long-standing history of GERD. His been on omeprazole 20 mg daily for several years. For the last 6 months he has been having worsening symptoms and hence it was increased to twice daily and symptoms have resolved.. PROCEDURE PERFORMED: Esophagogastroduodenoscopy with biopsy. PREOPERATIVE DIAGNOSIS: Long-standing history of GERD. IV sedation per anesthesia. PROCEDURE: After informed consent was obtained, the patient was brought into the endoscopy unit. IV sedation was administered by Anesthesia under continuous monitoring. Initially the Olympus GIF-140 video endoscope was inserted into the mouth. Esophagus intubated without any difficulty. It was gradually advanced into the stomach and duodenum and carefully examined. The bulb and the second part of the duodenum appeared normal. The scope at this time was withdrawn to the stomach, adequately insufflated with air, and upon careful examination, mucosa of the antrum, had diffuse gastritis and biopsies were done from this area. The body, cardia and the fundus appeared normal. The scope was then withdrawn into the esophagus. The GE junction was located at 41 cm from the incisors. There was a 5 mm length of Cole's appearing mucosa just proximal to the GE junction which was biopsied. A hiatal hernia noted. The ~esophagus appeared normal. There were no erosions or ulcerations seen and the patient tolerated the procedure well. IMPRESSION: 1. Short Segment Cole's esophagus status post biopsy. 2. Diffuse antral gastritis. 3. No evidence of hiatal hernia RECOMMENDATIONS: The findings of this examination were discussed with the patient as well as his family. He was advised to continue with omeprazole 20 mg twice daily and follow antireflux measures. I'll up with the biopsy results and if the biopsy reveals Cole's esophagus he can have a repeat upper endoscopy in 3 years..
[2021-10-14 11:13] VITALS: BP 149/85; PULSE 64
== END 2021-10-14 11:40 | disposition home or self-care (01) ==
LOC: ORWHC2ENDO 09:07
PROVIDERS: ATTEND Internal Medicine Gastroenterology
DX: K21.9 Gastro-esophageal reflux disease without esophagitis (principal); K29.70 Gastritis, unspecified, without bleeding; K44.9 Diaphragmatic hernia without obstruction or gangrene; E78.5 Hyperlipidemia, unspecified; G47.33 Obstructive sleep apnea (adult) (pediatric); Z79.899 Other long term (current) drug therapy
CPT/HCPCS: 88305; 43239; J2001; J2704

== ENCOUNTER → 2023-09-30 | Outpatient (CLI) | payer OTHER ==
[2023-09-30 12:48] LABS: Partial Thromboplastin Time 25.4 sec (22.0-30.0)
[2023-09-30 16:08] LABS: ALT 44 U/L (10-49); AST 24 U/L (14-35); Albumin 4.8 g/dL (3.8-4.9); Alkaline Phosphatase 54 U/L (41-126); BUN/Creat Ratio 13.36 Ratio (12.00-20.00); Blood Urea Nitrogen 14.7 mg/dL (9.0-27.0); Calcium 10.2 mg/dL (8.7-10.3); Carbon Dioxide 26.2 mmol/L (21.6-31.8); Chloride 103 mmol/L (96-109); Globulin 2.4 g/dL (1.6-3.3); Glucose 96 mg/dL (70-110); Potassium 4.8 mmol/L (3.5-5.5); Sodium 140 mmol/L (135-145); Total Bilirubin 0.3 mg/dL (0.3-1.2); Total Protein 7.2 g/dL (6.2-8.2)
[2023-09-30 17:05] LABS: HCT 44.1 % (39.6-50.0); HGB 14.4 g/dL (13.0-17.0); MCH 31.4 pg (27.0-32.0); MCHC 32.7 g/dL (32.0-37.0); MCV 96.3 FL (80.0-97.0); Mean Platelet Volume 9.4 FL (9.5-12.2); NRBC Per 100 WBC 0 X 10*3/uL (0.00-0.01); Platelet Count 240 X 10*3/uL (140-440); RBC 4.58 X 10*6/uL (4.40-5.60); RDW 13.2 % (11.5-14.5); WBC 5.62 X 10*3/uL (4.50-10.00)
== END | disposition home or self-care (01) ==
LOC: LABPAT 11:35
PROVIDERS: ATTEND Orthopaedic Surgery
DX: Z01.812 Encounter for preprocedural laboratory examination (principal); Z22.322 Carrier or suspected carrier of Methicillin resistant Staphylococcus aureus
CPT/HCPCS: 36415; 80053; 85027; 85610; 85730; 87070; 93005

== ENCOUNTER 2023-10-11 10:53 | Day surgery (SDC) | payer OTHER ==
[2023-10-05 14:45] VITALS: BMI 34.2
[~2023-10-11 10:53] MED LIST changes: +HYDROmorphone 0.5 MG/0.5 ML SYRINGE IVP PRN; -LACTATED RINGERS 1,000 ML IV SCH; +METOCLOPRAMIDE 5 MG/ML 2 ML VIAL IVP PRN; +MIDAZOLAM 2 MG/2 ML VIAL IV PRN; +TRANEXAMIC 1,000 MG/100ML-NACL 1,000 MG in SALINE 1 100ML.BAG IVPB PRN; +fentaNYL (PF) 50 MCG/ML 2 ML AMP IVP PRN
[2023-10-11] MEDS: ACETAMINOPHEN TAB 500 MG TAB PO PRN (11:35)
[2023-10-11] MEDS: MELOXICAM 7.5 MG TAB PO PRN (11:35)
[2023-10-11] MEDS: DEXAMETHASONE SOD PHOSPHATE 4 MG/ML 1 ML VIAL IV ONE (11:39)
[2023-10-11] MEDS: ONDANSETRON 4 MG/2 ML VIAL IVP PRN (11:39)
[2023-10-11] MEDS: LACTATED RINGERS 1,000 ML IV SCH (11:40)
[2023-10-11] MEDS: MIDAZOLAM 2 MG/2 ML VIAL IVP ONE (11:57)
[2023-10-11] MEDS ORDERED: LABETALOL 5 MG/ML VIAL MDV ONE (12:25)
[2023-10-11] MEDS ORDERED: PROPOFOL 10 MG/ML 20 ML VIAL IV ONE (12:25)
[2023-10-11] MEDS ORDERED: PHENYLEPHRINE-0.9% NACL SYG 1,000 MCG/10 ML SYRINGE ONE (12:25)
[2023-10-11] MEDS ORDERED: DEXAMETHASONE SOD PHOSPHATE 4 MG/ML 1 ML VIAL ONE (12:25)
[2023-10-11] MEDS ORDERED: NEOSTIGMINE 1 MG/ML 10 ML VIAL ONE (12:25)
[2023-10-11] MEDS ORDERED: LIDOCAINE 1% INJ 10MG/ML (20 ML MDV) ONE (12:25)
[2023-10-11] MEDS ORDERED: TRANEXAMIC 1,000 MG/100ML-NACL PREMIX BAG ONE (12:25)
[2023-10-11] MEDS ORDERED: fentaNYL (PF) 50 MCG/ML 2 ML AMP ONE (12:25)
[2023-10-11] MEDS ORDERED: SUCCINYLCHOLINE CHLORIDE 200 MG/10 ML VIAL IV ONE (12:25)
[2023-10-11] MEDS ORDERED: MIDAZOLAM 2 MG/2 ML VIAL ONE (12:25)
[2023-10-11] MEDS ORDERED: ROPIVACAINE 5 MG/ML 30 ML VIAL ONE (12:25)
[2023-10-11] MEDS ORDERED: GLYCOPYRROLATE 0.2 MG/ML 2 ML VIAL ONE (12:25)
[2023-10-11] MEDS ORDERED: HYDROmorphone (PF) 1 MG/ML ONE (12:25)
[2023-10-11] MEDS ORDERED: ROCURONIUM 10 MG/ML (5 ML VIAL) IV ONE (12:25)
[2023-10-11] MEDS: ceFAZolin 1,000 MG in SODIUM CHLORIDE 0.9% 1,000 ML IRRIGATION ONE (12:52)
[2023-10-11] MEDS: LACTATED RINGERS 1,000 ML IV ONE (13:52)
--- NOTE | 2023-10-11 14:02 | P.OP ---
Date of Procedure: 10/11/23 Procedure(s) Performed: PREOPERATIVE DIAGNOSIS: Right knee severe medial compartment osteoarthritis with genu varum POSTOPERATIVE DIAGNOSIS: Right knee severe medial compartment osteoarthritis with genu varum OPERATION: Right knee medial compartment cemented unicompartmental replacement arthroplasty (metal on polyethylene) ANESTHESIA: General and Regional block for postoperative pain control ESTIMATED BLOOD LOSS: 50 ml. PLANNING ASSOCIATE: Lizzy Alexander PA-C (assistance with: patient positioning, retraction, exposure, hemostasis, leg positioning, implantation, irrigation, closure, dressing) COMPLICATIONS: None apparent. COMPONENTS IMPLANTED: Journey unicompartmental knee system from Romero and [employer] INDICATIONS: Young is a 48 year old male with a history of right knee unicompartmental medial osteoarthritis. Conservative management has failed, including arthroscopy where it was noted that he has advanced degenerative changes of the medial compartment with relative sparing of the other two compartments. The operation of medial unicompartmental knee replacement has been discussed at length in the office, as well as potential risks and complications. These are inclusive of, but not limited to: bleeding, infection, scarring, discomfort, blood vessel and nerve damage, need for further surgery, failure to relieve symptoms, persistence, recurrence, or worsening of problems, loosening, dislocation, wear, blood clot, pulmonary embolism, , gait dysfunction, stiffness, and other risks as discussed in the office. The patient elects to proceed and the consent form has been signed. PROCEDURE: The patient was taken to the operating room and positioned on the operating room table in the supine position. Anesthesia was initiated. Care was taken to make sure that all pressure points were adequately padded. The operative lower extremity was prepped and draped in the usual aseptic fashion using ChloraPrep. Ioban drape was used for the case and the patient received intravenous antibiotics within one hour of the incision. A pneumotourniquet and leg herrera were used for the case. The limb was exsanguinated with an Esmarch bandage and the tourniquet was inflated to 250 mmHg. Time-out was called confirming the patient's identity, side, procedure and administration of antibiotics and tranexamic acid. The incision was then created over the medial aspect of the knee from approximately the superior pole of the patella down to adjacent to the tibial tubercle. Incision was carried down through skin and into subcutaneous tissues and sharp dissection was carried down to fascia. Hemostasis was obtained using electrocautery. Medial parapatellar arthrotomy was performed from approximately the level of the VMO to just below the tibial surface. Partial fat pad was resected and due to the previous surgeries this patient has had, the fat pad was somewhat scarred. These adhesions within the fat pad were released using cautery. This allowed better patellar mobilization. Excellent visualization of the medial compartment was accomplished. Retractors were placed within the no tch and the medial condyle. Careful release of the anterior medial soft tissues from bone was accomplished using sharp dissection. This was carried to but not into the medial collateral ligament. Tibial cut was performed first. The guide for the tibial cut was attached to the patient's lower extremity and the guide was placed against the bone. The boom of the guide was placed parallel to the palpable anterior surface of the tibia and arranged to be in line with the second metatarsal area the cut was planned to be exactly adjacent to the notch region of the medial femoral condyle. It should be noted that the patient's ACL and PCL were intact and normal in appearance. The depth of resection was set using the 4 mm guide. The guide was then pinned into position and the cut was created using an oscillating saw along with a reciprocating saw for the sagittal cut. The tibial fragment was then removed and the surface finished. Medial meniscus remnant was removed at this time. Next, the knee was placed into full extension and various spacers were placed in the medial compartment to assess the distance. The size 8 mm spacer was selected and a guide was placed onto this spacer and the guide was held into place on the femur with a headed pin. The distal femoral cut was then created through this guide and the fragment was removed. Flexion and extension gaps were then assessed and found to be satisfactory. The knee was then bent to 90 retractors were placed and the guide for femoral finishing was placed. Femur was finished using this guide. Next, tibia was sized and finished and the trial component was left in place. Femoral trial component was placed, and 8 mm spacer was utilized for trial. Excellent range of motion, stability, and alignment were noted. The trial components were then removed and the femoral and tibial surfaces were pulse lavaged and dried for cementing. Cement was mixed on the back table and applied to the final components. Cement was also pressurized into the bone with finger pressurization technique. Final components were then impacted into place and excess cement was removed. The 8 mm trial spacer was laced during this process. Axial force was applied to the leg during the curing process of the cement. Once the cement had fully hardened, excess cement was further removed, and the knee was assessed for range of motion stability and alignment based on the thickness of the planned polyethylene spacer. The 8 mm spacer was called for and implanted. Final range of motion and stability check was satisfactory. The tourniquet was deflated and hemostasis was obtained with electrocautery, another gram of tranexamic acid, and bone wax. Closure was performed of the fascia using a combination of #2 Ethibond suture as well as a running strata fix suture. Subcu closure was performed with 2-0 Vicryl suture in interrupted fashion followed by strata fix suture in running subcuticular fashion for the skin and Exofin topical dressing. A lightly compressive dressing was applied using Webril and an Srinivas wrap. The patient was then transferred to stretcher and taken to the recovery room in stable condition. Sponge and needle counts were correct.
[2023-10-11 14:38] VITALS: RESP 16; TEMP 97
[2023-10-11] MEDS: ROPIVACAINE 1,100 MG, SODIUM CHLORIDE 0.9% 500 ML 330 ML, EMPTY PAIN BALL 1 EACH MISCELLANE PRN (14:50)
--- NOTE | 2023-10-11 15:07 | XR ---
EXAMINATION TYPE: XR knee limited RT DATE OF EXAM: 10/11/2023 COMPARISON: NONE TECHNIQUE: Two views submitted HISTORY: Post op FINDINGS: There is post surgical change in near anatomic alignment. There is soft tissue edema and soft tissue emphysema. IMPRESSION: 1. Postoperative change.
[2023-10-11] MEDS: HYDROcodone/APAP 7.5-325MG 1 EACH TAB ONE (15:33)
[2023-10-11 16:20] VITALS: BP 146/91; PULSE 92
--- NOTE | 2023-10-11 21:00 | P.ANPRN ---
Procedure Note - Anesthesia - Nerve Block Performed Right Adductor Canal Infusion Time Out Performed: Yes Date of Procedure: 10/11/23 Procedure Start Time: 11:56 Procedure Stop Time: 12:06 Location of Patient: PreOp Indication: Acute Post-Operative Pain, Requested by Surgeon Sedation Type: Sedate with meaningful contact maintained Preparation: Sterile Prep, Sterile Dressing Position: Supine Catheter: Indwelling Needle Types: Pajunk Needle Gauge: 21 Ultrasound used to visualize needle placement: Yes Ultrasound used to observe medication spread: Yes Blood Aspirated: No Pain Paresthesia on Injection Noted: No Resistance on Injection: Normal Image Stored and Saved: Yes Events: Uneventful and Well Tolerated (ropi.5% 20 cc plus dexamethasone 4 mg)
--- NOTE | 2023-10-11 21:03 | P.ANPRN ---
Procedure Note - Anesthesia - Nerve Block Performed Right Cristian Single Time Out Performed: Yes Date of Procedure: 10/11/23 Procedure Start Time: 12:07 Procedure Stop Time: 12:10 Location of Patient: PreOp Indication: Acute Post-Operative Pain, Requested by Surgeon Sedation Type: Sedate with meaningful contact maintained Preparation: Sterile Prep, Sterile Dressing Position: Supine Catheter: Indwelling Needle Types: Pajunk Needle Gauge: 21 Ultrasound used to visualize needle placement: Yes Ultrasound used to observe medication spread: Yes Blood Aspirated: No Pain Paresthesia on Injection Noted: No Resistance on Injection: Normal Image Stored and Saved: Yes Events: Uneventful and Well Tolerated (Ropivacaine 0.5% 25 cc plus dexamethasone 4 mg)
== END 2023-10-11 16:52 | disposition home or self-care (01) ==
LOC: OR 10:53
PROVIDERS: ATTEND Orthopaedic Surgery
DX: M17.11 Unilateral primary osteoarthritis, right knee (principal); E78.5 Hyperlipidemia, unspecified; G47.33 Obstructive sleep apnea (adult) (pediatric); F32.A Depression, unspecified; K21.9 Gastro-esophageal reflux disease without esophagitis; Z79.899 Other long term (current) drug therapy; Z98.890 Other specified postprocedural states
CPT/HCPCS: 97530; 97161; 64999; 64448; 73560; 27446; C1713; C1776; C1751; J2250; J0330; J1100; J2710; J0690 ×2; J2405; J2001; J3010; J1170; J2795; J2704; J2371; J1920

== ENCOUNTER → 2023-11-19 | Outpatient (CLI) | payer OTHER ==
--- NOTE | 2023-11-19 12:52 | US ---
EXAMINATION TYPE: US venous doppler duplex LE RT DATE OF EXAM: 11/19/2023 12:32 PM COMPARISON: NONE CLINICAL INDICATION: Male, 48 years old with history of I80.9 PHLEBITIS AND THROMBOPHLEBITIS OF UNSPE CIFIE; Partial right knee replacement 10/11/23. Pain right calf SIDE PERFORMED: right TECHNIQUE: The lower extremity deep venous system is examined utilizing real time linear array sonog eliceo with graded compression, doppler sonography and color-flow sonography. VESSELS IMAGED: Common Femoral Vein Deep Femoral Vein Greater Saphenous Vein * Femoral Vein Popliteal Vein Small Saphenous Vein * Proximal Calf Veins Posterior tibial veins (* superficial vessels) Right Leg: No evidence of DVT IMPRESSION: No evidence for DVT right lower extremity.
== END | disposition home or self-care (01) ==
LOC: RADUSWWP 11:47
PROVIDERS: ATTEND Orthopaedic Surgery
DX: I80.9 Phlebitis and thrombophlebitis of unspecified site (principal); M17.11 Unilateral primary osteoarthritis, right knee; Z48.89 Encounter for other specified surgical aftercare; Z47.1 Aftercare following joint replacement surgery